=== PATIENT | female | born 1940 | race Caucasian/White ===

== ENCOUNTER 2017-04-25 13:12 | Inpatient (IN) ==
[2017-04-25] MEDS ORDERED: 0.9 % Sodium Chloride 1,000 ML IVC ONE (13:49)
[2017-04-25] MEDS ORDERED: Ondansetron 4 MG/2 ML VIAL IVP ONE (13:49)
[2017-04-25 14:19] LABS: Basophils % 0.2 %; Eosinophils # 0.4 K/mcL (0.0-0.6); Eosinophils % 2.5 %; Hematocrit 36.6 % (35.3-44.9); Hemoglobin 11.2 g/dL (11.5-15.4); Immature Granulocytes % 0.5 % (0-4); Lymphocytes # 2.5 K/mcL (0.6-4.6); Lymphocytes % 14.4 %; Mean Corpuscular HGB Conc 30.6 g/dL (31.6-35.5); Mean Corpuscular Hemoglobin 28.6 pg (28.0-33.3); Mean Corpuscular Volume 93.6 fL (83.0-100.0); Mean Platelet Volume 9.6 fL (9.4-12.4); Monocytes % 11.7 %; Neutrophils # 12.1 K/mcL (1.6-8.9); Platelet Count 267 K/mcL (140-400); Red Blood Count 3.91 M/mcL (3.82-4.97); Red Cell Distribution Width 13.2 % (11.5-14.5); Segmented Neutrophils % 70.7 %
[2017-04-25 14:32] LABS: Bilirubin,Urine Negative (Negative); Blood,Urine Moderate (Negative); Clarity,Urine Turbid (Clear); Color,Urine Yellow (Yellow); Glucose,Urine (UA) Normal (Normal); Ketones,Urine Trace mg/dL (Negative); Leukocyte Esterase,Urine Large (Negative); Nitrite,Urine Negative (Negative); PH,Urine 5.5 pH Units (5.0-8.0); Protein,Urine 100 mg/dL (Neg-Trace); Specific Gravity,Urine 1.017 (1.010-1.025); Urobilinogen,Urine Normal (Normal)
--- NOTE | 2017-04-25 14:33 | Emergency Department Note ---
Disposition Clinical Impression: LOUIE (acute kidney injury), Dehydration Pancreatitis Qualifiers: Chronicity: acute Pancreatitis type: unspecified pancreatitis type Acute pancreatitis complication: unspecified Qualified Code(s): K85.90 - Acute pancreatitis without necrosis or infection, unspecified Disposition: Admitted As Inpatient Condition: Good Time of Disposition: 15:30 General Adult HPI - General Chief complaint: ED Nausea/Vomiting/Diarrhea Stated complaint: vomiting x5 days Time Seen by Provider: 04/25/17 13:47 Source: patient Limitations: no limitations Nursing Notes Reviewed: Yes Vital Signs Reviewed: Yes - History of Present Illness HPI Narrative: Four-day history of nausea vomiting and left flank pain. Patient states this is consistent with previous kidney stones. Subjective fevers. Radiation of the pain to her left abdomen. No trouble urinating. No hematuria. Quality is a sharp pain. Pain Scale: 7 - Related Data Allergies Allergy/AdvReac Type Severity Reaction Status Date / Time No Known Allergies Allergy Verified 04/25/17 13:28 All systems ED: reviewed and negative except as stated. Constitutional: Reports: chills. Denies: fever Cardiovascular: Denies: chest pain, palpitations, syncope Respiratory: Denies: cough, dyspnea, wheezes Gastrointestinal: Reports: nausea, vomiting. Denies: abdominal pain, diarrhea Genitourinary: Denies: urgency, dysuria, frequency, hematuria Past Medical History - Past Medical History Attestation: Yes The following information was validated with the patient. Source: patient Medical history: Reports: diabetes, GERD, hyperlipidemia, hypertension, myocardial infarction Psychiatric history: Reports: no psych history - Social History Smoking Status: Never smoker Smokeless Tobacco Status: No Alcohol use: Reports: none Drug use: Reports: none Physical Exam - General Limitations: no limitations General appearance: alert, in no apparent distress - Head Head exam: atraumatic, normocephalic, normal inspection - Eye Eye exam: Present: normal appearance, PERRL, EOMI. Absent: scleral icterus - ENT ENT exam: normal exam, normal oropharynx, mucous membranes moist - Neck Neck exam: Present: normal inspection, full ROM, trachea midline. Absent: tenderness - Chest Chest inspection: Present: normal inspection, symmetric chest wall rise. Absent : tenderness, rash - Respiratory Respiratory exam: Present: normal lung sounds bilaterally. Absent: respiratory distress - Cardiovascular Cardiovascular exam: Present: regular rate, normal rhythm, normal heart sounds - Abdominal Exam Abdominal exam: Present: soft, Non-Tender, normal bowel sounds. Absent: tenderness, organomegaly - Extremities Exam Extremities exam: Present: normal inspection, full ROM, normal capillary refill. Absent: tenderness, pedal edema - Back Exam Back exam: Present: full ROM, CVA tenderness (L) - Neurological Exam Neurological exam: Present: alert, oriented X3 - Psychiatric Psychiatric exam: Present: normal affect, normal mood - Skin Skin exam: Present: warm, dry, intact, normal color Course Course Narrative: Female patient presents immersed from complaining of 5 day history of nausea and vomiting. She is also complaining of left flank pain that radiates around to her abdomen. She states that she does have a history of kidney stones and this is how they generally present. She denies any fevers but does report subjective chilling. He appears to be resting comfortably in bed and does not appear to be in any distress. Her lung sounds are clear heart sounds are normal on exam she does have left-sided CVA tenderness. I do not appreciate any abdominal tenderness on palpation. There are no peritoneal signs. She shows no signs of edema to her extremities. We will get a CT of patient's abdomen basic lab workup and provide her with pain relief and nausea medication. - Reevaluation(s) Reevaluation #1: Patient has pancreatitis. She has been a difficult stick for nurses however an IV has been placed. Will rehydrate patient and send her urine for reflex culture. She does not report any urinary symptoms at this time. We will await culture before treating this. We will admit patient to the hospital for her new LOUIE as well as pancreatitis. - Consultations Consultation #1: RAPHAEL Hammond accepted Pt in stable condition. Time: 15:30 Vital Signs Temperature 97.8 F 04/25/17 13:28 Pulse Rate 101 04/25/17 13:28 Respiratory Rate 14 04/25/17 13:28 Blood Pressure 108/69 04/25/17 13:28 O2 Sat by Pulse Oximetry 97 04/25/17 13:28 Temperature 98.1 F 04/25/17 20:02 Pulse Rate 100 04/25/17 20:02 Respiratory Rate 18 04/25/17 20:02 Blood Pressure 112/72 04/25/17 20:02 O2 Sat by Pulse Oximetry 95 04/25/17 20:02 Oxygen Delivery Oxygen Delivery Room Air Medical Decision Making - Medical Records Medical records reviewed: Yes I reviewed the patient's medical records. - Lab Data Lab results reviewed: Yes I reviewed the patient's lab results. Result diagrams: 04/25/17 14:08 04/25/17 14:08 Lab Results 04/25/17 04/25/17 04/25/17 Range/Units 14:08 14:08 14:08 WBC 17.0 H (4.3-11.1) K/mcL RBC 3.91 (3.82-4.97) M/mcL Hgb 11.2 L (11.5-15.4) g/dL Hct 36.6 (35.3-44.9) % MCV 93.6 (83.0-100.0) fL MCH 28.6 (28.0-33.3) pg MCHC 30.6 L (31.6-35.5) g/dL RDW 13.2 (11.5-14.5) % Plt Count 267 (140-400) K/mcL MPV 9.6 (9.4-12.4) fL Immature Gran % 0.5 (0-4) % Seg Neutrophils % 70.7 % Lymphocytes % 14.4 % Monocytes % 11.7 % Eosinophils % 2.5 % Basophils % 0.2 % Neutrophils # 12.1 H (1.6-8.9) K/mcL Lymphocytes # 2.5 (0.6-4.6) K/mcL Monocytes # 2.0 H (0.0-1.3) K/mcL Eosinophils # 0.4 (0.0-0.6) K/mcL Basophils # 0.0 (0.0-0.2) K/mcL Sodium 138 (136-145) mEq/L Potassium 4.4 (3.5-4.5) mEq/L Chloride 110 H (98-109) mEq/L Carbon Dioxide 14 L (19-29) mEq/L BUN 70 H (7-20) mg/dL Creatinine 3.11 H (0.57-1.11) mg/dL Est GFR ( Amer) 18 L (> 60) Est GFR (Non-Af Amer) 15 L (> 60) BUN/Creatinine Ratio 23 (6-26) Glucose 145 H (70-99) mg/dL Calculated Osmolality 309 H (280-300) Lactic Acid 1.7 (0.5-2.2) mmol/L Calcium 9.6 (8.6-10.8) mg/dL Lipase 251 H (8-78) Units/L Urine Color (Yellow) Urine Clarity (Clear) Urine pH (5.0-8.0) pH Units Ur Specific [place] (1.010-1.025) Urine Protein (Neg-Trace) mg/dL Urine Glucose (UA) (Normal) mg/dL Urine Ketones (Negative) mg/dL Urine Blood (Negative) Urine Nitrite (Negative) Urine Bilirubin (Negative) Urine Urobilinogen (Normal) mg/dL Ur Leukocyte Esterase (Negative) Urine Microscopic RBC (0-3) per hpf Urine Microscopic WBC (0-3) per hpf Ur Squamous Epith Cells (None-Few) per lpf Urine Bacteria (None-Few) per hpf Hyaline Casts (None-Few) per lpf Ur Culture Indicated? (NO) 04/25/17 Range/Units 14:22 WBC (4.3-11.1) K/mcL RBC (3.82-4.97) M/mcL Hgb (11.5-15.4) g/dL Hct (35.3-44.9) % MCV (83.0-100.0) fL MCH (28.0-33.3) pg MCHC (31.6-35.5) g/dL RDW (11.5-14.5) % Plt Count (140-400) K/mcL MPV (9.4-12.4) fL Immature Gran % (0-4) % Seg Neutrophils % % Lymphocytes % % Monocytes % % Eosinophils % % Basophils % % Neutrophils # (1.6-8.9) K/mcL Lymphocytes # (0.6-4.6) K/mcL Monocytes # (0.0-1.3) K/mcL Eosinophils # (0.0-0.6) K/mcL Basophils # (0.0-0.2) K/mcL Sodium (136-145) mEq/L Potassium (3.5-4.5) mEq/L Chloride (98-109) mEq/L Carbon Dioxide (19-29) mEq/L BUN (7-20) mg/dL Creatinine (0.57-1.11) mg/dL Est GFR ( Amer) (> 60) Est GFR (Non-Af Amer) (> 60) BUN/Creatinine Ratio (6-26) Glucose (70-99) mg/dL Calculated Osmolality (280-300) Lactic Acid (0.5-2.2) mmol/L Calcium (8.6-10.8) mg/dL Lipase (8-78) Units/L Urine Color Yellow (Yellow) Urine Clarity Turbid A (Clear) Urine pH 5.5 (5.0-8.0) pH Units Ur Specific [place] 1.017 (1.010-1.025) Urine Protein 100 H (Neg-Trace) mg/dL Urine Glucose (UA) Normal (Normal) mg/dL Urine Ketones Trace H (Negative) mg/dL Urine Blood Moderate H (Negative) Urine Nitrite Negative (Negative) Urine Bilirubin Negative (Negative) Urine Urobilinogen Normal (Normal) mg/dL Ur Leukocyte Esterase Large H (Negative) Urine Microscopic RBC 3-5 H (0-3) per hpf Urine Microscopic WBC TNTC H (0-3) per hpf Ur Squamous Epith Cells Many H (None-Few) per lpf Urine Bacteria Many H (None-Few) per hpf Hyaline Casts None Seen (None-Few) per lpf Ur Culture Indicated? YES A (NO) - Radiology Data Radiology results reviewed: Yes I reviewed the patient's radiology results. Abdomen/Pelvis CT 04/25/17 13:58 IMPRESSION: Findings likely represent acute interstitial pancreatitis. No fluid collection. Necrosis cannot be assessed without contrast. No evidence of nephro ureteral calculus. Bladder is collapsed and contains a small focus of gas. Correlate for history of catheterization. There is no history of recent catheterization, consider direct visualization for further evaluation. Diverticulosis without evidence of diverticulitis. D/ / Zac Harkins MD / Zac Harkins MD Interpreting Provider: Zac Harkins MD Attestation Statement - Attestation Attestation: I examined this patient and my medical decision-making was reviewed with the Resident Physician. I agree with the documented findings, disposition and treatment plan as described except to the extent set forth below. In summary 76 -year-old female with nausea and abdominal pain and nausea. Fundi have acute unconjugated pancreatitis. Concurrently and white blood cell count elevation as well as acute kidney injury. Plan to admit for IV hydration, pain control, previous cholecystectomy.
[2017-04-25 14:34] LABS: Bacteria,Urine Many per hpf (None-Few); Hyaline Casts,Urine None Seen per lpf (None-Few); Squamous Epithelial Cell,Urine Many per lpf (None-Few); WBC,Urine TNTC per hpf (0-3)
[2017-04-25 14:36] LABS: Calcium 9.6 mg/dL (8.6-10.8); Potassium 4.4 mEq/L (3.5-4.5)
[2017-04-25] MEDS ORDERED: Ondansetron 4 MG/2 ML VIAL IVP PRN (16:25)
[2017-04-25] MEDS ORDERED: Naloxone 0.4 MG/ML INJ IVP PRN (16:25)
[2017-04-25] MEDS ORDERED: *HR* Morphine 2 MG/ML SYRINGE IVP PRN (16:25)
[2017-04-25] MEDS ORDERED: Dextrose Gel 15 GM PO PRN ×2 (16:31)
[2017-04-25] MEDS ORDERED: D5% in Water 1,000 ML IVC PRN (16:31)
[2017-04-25] MEDS ORDERED: *HR* Dextrose 50 % in Water (Syg) 50 ML SYRINGE IVP PRN (16:31)
--- NOTE | 2017-04-25 16:58 | Internal Med History&Physical ---
Date of Encounter: 04/25/17 Time of Encounter: 16:40 Assessment and Plan (1) Acute pancreatitis Current visit: Yes Status: Acute Acute Pancreatitis, unclear etiology - causing abdominal pain, back pain, nausea /vomiting and leukocytosis - with severe LOUIE and UTI Continue IV fluids, empiric IV Flagyl and IV Cipro NPO, IV Zofran, IV pantoprazole, IV Morphine as needed for pain CT abdomen and pelvis acute interstitial pancreatitis with no fluid collection and no evidence of renal calculi, diverticulosis without diverticulitis Lipase - 251 WBC - 17.0 Lactic acid - 1.7 UA - positive for leukocyte esterase and bacteria Cultures - pending BUN/creatinine - 70/3.11 Lipid panel, HbA1c, TSH - pending Cardiac telemetry, labs in a.m., close monitoring Qualifiers: Pancreatitis type: idiopathic Acute pancreatitis complication: unspecified Qualified Code(s): K85.00 - Idiopathic acute pancreatitis without necrosis or infection (2) LOUIE (acute kidney injury) Current visit: Yes Status: Acute Severe acute kidney injury - secondary to dehydration/volume depletion - due to poor PO intake and vomiting Continue IV fluids, labs in a.m. (3) UTI (urinary tract infection) Current visit: Yes Status: Acute UTI, acute cystitis, with LOUIE - present on admission, likely secondary to gram- negative bacteria Continue IV Ciprofloxacin, IV Flagyl UA - positive for leukocyte esterase and bacteria Cultures - pending Qualifiers: Urinary tract infection type: acute cystitis Hematuria presence: without hematuria Qualified Code(s): N30.00 - Acute cystitis without hematuria (4) CAD (coronary artery disease) Current visit: Yes Status: Chronic History of coronary artery disease status post stent - stable, no anginal symptoms Continue Aspirin, Statin, Plavix EKG - pending Troponin - pending Qualifiers: Coronary Disease-Associated Artery/Lesion type: [place] artery [place] vs. transplanted heart: [place] heart Associated angina: without angina Qualified Code(s): I25.10 - Atherosclerotic heart disease of [place] coronary artery without angina pectoris (5) Essential hypertension Current visit: Yes Status: Chronic Essential hypertension, controlled, monitor, restart home meds when taking PO (6) Type 2 diabetes mellitus Current visit: Yes Status: Chronic Diabetes mellitus type 2, insulin-dependent, hyperglycemia Insulin sliding scale low-dose correction, glucose checks Restart Levemir home dose when patient is able to tolerate diabetic diet Qualifiers: Diabetes mellitus complication status: without complication Diabetes mellitus ferry terminal supervisor insulin use: with ferry terminal supervisor use Qualified Code(s): E11.9 - Type 2 diabetes mellitus without complications; Z79.4 - half-way (current) use of insulin (7) DVT prophylaxis Current visit: Yes Status: Acute Continue heparin subcutaneous Internal Medicine - H&P: HPI Chief complaint: Left flank pain, nausea, vomiting Admitted From: Emergency Dept Plans for Post Hospital Care: Home History of present illness: Ms. Gamez is a 76 year old female with past medical history of coronary artery disease status post stent, hypertension, diabetes mellitus, hyperlipidemia and GERD. Patient presents to the ED with complaints of left flank pain, left back pain, nausea and vomiting. Examined [facility] floor. Patient is awake and alert. Not in any distress. Able to provide all history. No family members at bedside. Patient states left flank pain and left back pain started about 4-5 days ago. She also complains of associated nausea and vomiting. She has a poor appetite and states she is unable to keep anything down. Patient states symptoms have gradually worsened, and she finally decided to come to the ED. Patient states the pain is mainly in one particular spot in the left flank and left back. Symptoms are aggravated with food intake. No alleviating factors. She states pain is constant and is sharp. Initial pain was 8 out of 10, but now after IV pain medication patient states it is 3 out of 10. Patient states she has had multiple episodes of vomiting and is unable tolerate any oral diet. Patient also has mild dysuria. She denies diarrhea and denies hematemesis. She denies chest pain or shortness of breath or palpitations. Denies headache or dizziness or cough. Denies hematuria. No other associated symptoms. No other complaints. Initial workup in the ED is significant for acute pancreatitis seen on CT of the abdomen and pelvis. Patient also has leukocytosis, UTI and severe acute kidney injury. Lipase level is elevated at 251. Patient being admitted for acute pancreatitis and UTI and severe acute kidney injury. Patient will be on IV antibiotics, IV fluids, IV pain medication as needed and will be kept nothing by mouth. Patient has been explained about her condition and plan of care in detail. She understood and agreed. No unanswered questions. CODE STATUS full code. Past Med Surg Social Fam HX - Past Medical History Medical history: coronary artery disease, diabetes, GERD, hyperlipidemia, hypertension, myocardial infarction Psychiatric history: no psych history - Past Surgical History Surgical History: angioplasty/stent, cholecystectomy, hip replacement (Right side), hysterectomy, orthopedic, other (Bilateral tibial fracture repair) - Social History Smoking Status: Never smoker Smokeless Tobacco Status: No Alcohol use: none Drug use: none - Family History Mother Living Status: Hx Family Cardiac Disorders: Yes Hx Family Cancer: Yes (skin) Hx Family Endocrine Disorder: Yes (DM) Internal Medicine - H&P: Meds Aspirin [Lo-Dose Aspirin EC] 81 mg PO DAILY 04/25/17 [History] Atorvastatin Calcium [Lipitor] 20 mg PO DAILY 04/25/17 [History] Calcium Carbonate/Vitamin D3 [Calcium 500 + Vit D Caplet] 1 tab PO DAILY [History] Clopidogrel Bisulfate [Plavix] 75 mg PO DAILY 04/25/17 [History] Insulin DETEMIR [Levemir Flextouch] 40 unit SQ BID 04/25/17 [History] Lisinopril [Zestril] 10 mg PO DAILY 04/25/17 [History] Loratadine [Allergy Relief] 10 mg PO DAILY 04/25/17 [History] Metoprolol [Lopressor] 25 mg PO BID 04/25/17 [History] Omeprazole [PriLOSEC] 20 mg PO DAILY 04/25/17 [History] Allergies No Known Allergies Allergy (Verified 04/25/17 13:28) All Systems PM: A 10-system review of systems was performed and is negative for pertinent findings except as documented above in the HPI. - Constitutional Constitutional: fatigue, weakness, no fever(s) - EENT Eyes: no blurry vision - Cardiovascular Cardiovascular ROS IM: no chest pain, no dyspnea, no dyspnea on exertion, no edema, no lightheadedness, no orthopnea, no syncope - Respiratory Respiratory: no cough, no dyspnea, no dyspnea on exertion, no wheezing, no chest congestion - Gastrointestinal Gastrointestinal: abdominal pain (Left flank and left back pain), nausea, vomiting, no bloating, no constipation, no cramping, no diarrhea, no melena - Genitourinary Genitourinary: dysuria - Musculoskeletal Musculoskeletal ROS IM: back pain - Neurological Neurological ROS: no abnormal gait, no confusion, no dizziness, no numbness, no tingling - Constitutional Vitals: Temp Pulse Resp BP Pulse Ox 97.8 F 102 16 144/77 98 04/25/17 16:54 04/25/17 16:54 04/25/17 16:54 04/25/17 16:54 04/25/17 16:54 General appearance: Present: A&O X 3, pleasant, no acute distress, answers questions appropriately - Head Head exam: Present: atraumatic - Eye Eye exam: Present: EOMI - ENT ENT exam: Present: mucous membranes dry - Neck Neck exam general surgery: Present: supple - Respiratory Respiratory exam: Present: CTAB. Absent: rales, rhonchi, stridor, wheezes, tachypnea - Cardiovascular Cardiovascular exam: Present: RRR, +S1, +S2 - GI/Abdominal GI/Abdominal exam: Present: soft, no peritoneal signs. Absent: distended, firm , guarding, rigid, tenderness Additional comments: Patient has mild tenderness in the left lower back - Extremities Exam Extremities exam: Present: radial pulses palpable and symetrical. Absent: calf tenderness, cyanotic, pedal edema, tenderness - Neurological Exam Neurological exam: Present: alert, oriented X3, no focal deficits. Absent: facial droop, speech deficit Internal Med - H&P Results - Labs CBC & Chem 7: 04/25/17 14:08 04/25/17 14:08
[2017-04-25 17:19] LABS: INR 1.2; Prothrombin Time 12.5 Seconds (9.4-12.1)
[2017-04-25 17:23] LABS: Hemoglobin A1C 6.9 %
[2017-04-25] MEDS: Pantoprazole 40 MG VIAL IVP SCH (17:23)
[2017-04-25] MEDS: 0.9 % Sodium Chloride 1,000 ML IVC SCH (17:23)
[2017-04-25] MEDS: *HR* Heparin 5,000 UNIT/ML VIAL SQ SCH (17:23)
[2017-04-25 17:25] LABS: Chol/HDL Ratio 5.3 (0-4.9)
[2017-04-25 17:45] LABS: Thyroid Stimulating Hormone 2.132 mcIU/mL (0.350-4.840)
[2017-04-25] MEDS: Insulin LISPRO 300 UNITS/3 ML VIAL SQ SCH (20:02)
[2017-04-25] MEDS: MetroNIDAZOLE 500 MG/100 ML 500 MG/100 ML BAG IVPB SCH (22:57)
[2017-04-26 02:13] LABS: Basophils % 0.3 %; Eosinophils # 0.4 K/mcL (0.0-0.6); Eosinophils % 2.8 %; Hematocrit 30.3 % (35.3-44.9); Immature Granulocytes % 0.6 % (0-4); Lymphocytes % 15.4 %; Mean Corpuscular HGB Conc 31.7 g/dL (31.6-35.5); Mean Corpuscular Hemoglobin 29.5 pg (28.0-33.3); Mean Corpuscular Volume 93.2 fL (83.0-100.0); Mean Platelet Volume 9.9 fL (9.4-12.4); Monocytes # 1.8 K/mcL (0.0-1.3); Monocytes % 13.7 %; Neutrophils # 8.9 K/mcL (1.6-8.9); Platelet Count 198 K/mcL (140-400); Red Blood Count 3.25 M/mcL (3.82-4.97); Red Cell Distribution Width 13.1 % (11.5-14.5); Segmented Neutrophils % 67.2 %
[2017-04-26 02:15] LABS: Hemoglobin 9.6 g/dL (11.5-15.4)
[2017-04-26 02:26] LABS: Albumin 2.6 g/dL (3.5-5.0); Albumin/Globulin Ratio 0.8 (1.1-2.2); Bilirubin,Total 0.4 mg/dL (0.2-1.2); Calcium 8.5 mg/dL (8.6-10.8); Globulin 3.3 g/dL (2.4-3.5); Potassium 4.1 mEq/L (3.5-4.5); Total Protein 5.9 g/dL (6.0-8.3)
[2017-04-26] MEDS: 0.9 % Sodium Chloride 1,000 ML IVC SCH ×2 (05:31→16:50)
[2017-04-26] MEDS: *HR* Heparin 5,000 UNIT/ML VIAL SQ SCH ×2 (05:36→16:49)
[2017-04-26] MEDS: Insulin LISPRO 300 UNITS/3 ML VIAL SQ SCH ×4 (09:21→20:46)
[2017-04-26] MEDS: MetroNIDAZOLE 500 MG/100 ML 500 MG/100 ML BAG IVPB SCH ×3 (09:49→23:39)
[2017-04-26] MEDS: Pantoprazole 40 MG VIAL IVP SCH (09:50)
[2017-04-26] MEDS: Aspirin Enteric Coated 81 MG Tablet PO SCH (09:51)
[2017-04-26 12:33] LABS: Protein/Creatinine Ratio,Urine 0.37 mg/mg (0-0.20)
--- NOTE | 2017-04-26 14:58 | Internal Med Progress Note ---
Date of Encounter: 04/26/17 Time of Encounter: 10:35 - Assessment and plan (1) Acute pancreatitis Current Visit: Yes Status: Acute Assessment and plan: Acute Pancreatitis, unclear etiology - causing abdominal pain, back pain, nausea /vomiting and leukocytosis - with severe LOUIE and UTI - improving slowly Continue IV fluids, empiric IV Flagyl and IV Cipro Clear liquid diet, IV Zofran, IV pantoprazole, IV Morphine as needed for pain CT abdomen and pelvis acute interstitial pancreatitis with no fluid collection and no evidence of renal calculi, diverticulosis without diverticulitis Lipase - 251 WBC - 13.3 Lactic acid - 1.7 UA - positive for leukocyte esterase and bacteria Cultures - pending BUN/creatinine - 69/2.90 Triglycerides - 251 Cardiac telemetry, labs in a.m., close monitoring Qualifiers: Pancreatitis type: idiopathic Acute pancreatitis complication: unspecified Qualified Code(s): K85.00 - Idiopathic acute pancreatitis without necrosis or infection (2) LOUIE (acute kidney injury) Current Visit: Yes Status: Acute Assessment and plan: Severe acute kidney injury - secondary to dehydration/volume depletion - due to poor PO intake and vomiting - improving slowly Unknown baseline creatinine and GFR Continue IV fluids, labs in a.m. (3) UTI (urinary tract infection) Current Visit: Yes Status: Acute Assessment and plan: UTI, acute cystitis, with LOUIE - present on admission, likely secondary to gram- negative bacteria Continue IV Ciprofloxacin, IV Flagyl UA - positive for leukocyte esterase and bacteria Cultures - pending Qualifiers: Urinary tract infection type: acute cystitis Hematuria presence: without hematuria Qualified Code(s): N30.00 - Acute cystitis without hematuria (4) CAD (coronary artery disease) Current Visit: Yes Status: Chronic Assessment and plan: History of coronary artery disease status post stent - stable, no anginal symptoms Continue Aspirin, Statin, Plavix EKG - sinus rhythm with no acute ST-T changes Troponin - 0.02 Qualifiers: Coronary Disease-Associated Artery/Lesion type: [place] artery [place] vs. transplanted heart: [place] heart Associated angina: without angina Qualified Code(s): I25.10 - Atherosclerotic heart disease of [place] coronary artery without angina pectoris (5) Essential hypertension Current Visit: Yes Status: Chronic Assessment and plan: Essential hypertension, controlled, monitor, continue home meds (6) Type 2 diabetes mellitus Current Visit: Yes Status: Chronic Assessment and plan: Diabetes mellitus type 2, insulin-dependent, normoglycemia Insulin sliding scale low-dose correction, glucose checks Restart Levemir home dose when patient is able to tolerate diabetic diet Hemoglobin A1c - 6.9 Qualifiers: Diabetes mellitus complication status: without complication Diabetes mellitus pool coordinator insulin use: with pool coordinator use Qualified Code(s): E11.9 - Type 2 diabetes mellitus without complications; Z79.4 - care home (current) use of insulin (7) DVT prophylaxis Current Visit: Yes Status: Acute Assessment and plan: Continue heparin subcutaneous - Time Spent With Patient 25 - 35 minutes - Subjective Interval history: Examined this morning. Patient awake and alert. Not in any distress. Denies chest pain or shortness of breath. Denies vomiting. States her back pain and abdominal pain have now improved. Denies diarrhea. No fever. Hemodynamically stable. We will advance to clear liquids today. Acute kidney injury improving slowly and leukocytosis improving. No other acute events or complaints. - Constitutional Vitals: Temp Pulse Resp BP Pulse Ox 98.4 F 66 16 135/98 97 04/26/17 11:08 04/26/17 11:08 04/26/17 11:08 04/26/17 11:08 04/26/17 11:08 General appearance: Present: A&O X 3, pleasant, no acute distress, answers questions appropriately - Head Head exam: Present: atraumatic - Eye Eye exam: Present: EOMI - ENT ENT exam: Present: mucous membranes moist - Neck Neck exam general surgery: Present: supple - Respiratory Respiratory exam: Present: CTAB. Absent: rales, rhonchi, wheezes, tachypnea - Cardiovascular Cardiovascular exam: Present: RRR, +S1, +S2 - GI/Abdominal GI/Abdominal exam: Present: normal bowel sounds, soft. Absent: distended, firm , guarding, rigid, tenderness Additional comments: Left flank and left back tenderness and now improved - Extremities Exam Extremities exam: Present: radial pulses palpable and symetrical. Absent: calf tenderness, cyanotic, pedal edema - Neurological Exam Neurological exam: Present: alert, oriented X3, no focal deficits. Absent: facial droop, speech deficit Internal Medicine: Result - Labs CBC & Chem 7: 04/26/17 01:49 04/26/17 01:49 Labs: Short CBC 04/26/17 Range/Units 01:49 WBC 13.3 H (4.3-11.1) K/mcL Hgb 9.6 L D (11.5-15.4) g/dL Hct 30.3 L (35.3-44.9) % Plt Count 198 (140-400) K/mcL Neutrophils # 8.9 (1.6-8.9) K/mcL BMP 04/26/17 01:49 Sodium 139 Potassium 4.1 Chloride 114 H Carbon Dioxide 14 L BUN 69 H Creatinine 2.90 H Glucose 76 Calcium 8.5 L Cardiac Enzymes 04/25/17 04/25/17 Range/Units 17:01 21:50 Troponin I 0.02 0.02 (0-0.03) ng/mL Liver Function 04/26/17 Range/Units 01:49 Total Bilirubin 0.4 (0.2-1.2) mg/dL AST 16 (5-34) Units/L ALT 11 (0-55) Units/L Alkaline Phosphatase 50 (38-126) Units/L Albumin 2.6 L (3.5-5.0) g/dL - ABG Interpretation ABG results: PT/INR, D-dimer PT 12.5 Seconds (9.4-12.1) H 04/25/17 17:01 Consult Discharge Plan - Plan Referrals: Miguel Deras MD [Primary Care Provider] -
--- NOTE | 2017-04-26 20:56 | Electrocardiograph Report ---
[address] [place] [address] Test Date: 2017-04-26 Pat Name: Dayan Gamez Department: 115 Room: 3A21 Gender: F Ad Setter: BED : 1940 Requested By: Soto Bernal Order Number: [id number] Reading MD: Freddy Hoyos MD Measurements Intervals [place] Rate: 69 P: 52 MS: 165 QRS: -27 QRSD: 98 T: 120 QT: 397 QTc: 417 Interpretive Statements SINUS RHYTHM LOW QRS VOLTAGE IN PRECORDIAL LEADS INFERIOR MYOCARDIAL INFARCTION, PROBABLY OLD ANTEROLATERAL MYOCARDIAL INFARCTION, OF INDETERMINATE AGE Electronically Signed On 04-26-2017 20:54:15 EDT by Freddy Hoyos MD
[2017-04-27 05:39] LABS: Basophils % 0.2 %; Eosinophils # 0.4 K/mcL (0.0-0.6); Eosinophils % 3.5 %; Hematocrit 29.8 % (35.3-44.9); Hemoglobin 9.2 g/dL (11.5-15.4); Immature Granulocytes % 0.8 % (0-4); Lymphocytes # 1.9 K/mcL (0.6-4.6); Lymphocytes % 15.4 %; Mean Corpuscular HGB Conc 30.9 g/dL (31.6-35.5); Mean Corpuscular Hemoglobin 29.4 pg (28.0-33.3); Mean Corpuscular Volume 95.2 fL (83.0-100.0); Monocytes # 1.4 K/mcL (0.0-1.3); Monocytes % 11.6 %; Neutrophils # 8.3 K/mcL (1.6-8.9); Platelet Count 189 K/mcL (140-400); Red Blood Count 3.13 M/mcL (3.82-4.97); Red Cell Distribution Width 13.2 % (11.5-14.5); Segmented Neutrophils % 68.5 %
[2017-04-27 05:55] LABS: Calcium 8.2 mg/dL (8.6-10.8); Potassium 4.2 mEq/L (3.5-4.5)
[2017-04-27] MEDS: *HR* Heparin 5,000 UNIT/ML VIAL SQ SCH (06:06)
[2017-04-27] MEDS: Aspirin Enteric Coated 81 MG Tablet PO SCH (09:38)
[2017-04-27] MEDS: Insulin LISPRO 300 UNITS/3 ML VIAL SQ SCH ×3 (09:40→16:29)
[2017-04-27] MEDS: MetroNIDAZOLE 500 MG/100 ML 500 MG/100 ML BAG IVPB SCH (10:49)
[2017-04-27] MEDS: Pantoprazole 40 MG VIAL IVP SCH (10:50)
[2017-04-27 14:58] VITALS: BP 157/78
--- NOTE | 2017-04-27 16:36 | Discharge Summary ---
Date of Encounter: 04/27/17 Time of Encounter: 16:34 - Discharge Diagnosis (1) Acute pancreatitis Priority: Primary Status: Acute Qualifiers: Pancreatitis type: idiopathic Acute pancreatitis complication: unspecified Qualified Code(s): K85.00 - Idiopathic acute pancreatitis without necrosis or infection (2) LOUIE (acute kidney injury) Priority: Secondary Status: Acute (3) CAD (coronary artery disease) Priority: Secondary Status: Chronic Qualifiers: Coronary Disease-Associated Artery/Lesion type: [place] artery [place] vs. transplanted heart: [place] heart Associated angina: without angina Qualified Code(s): I25.10 - Atherosclerotic heart disease of [place] coronary artery without angina pectoris (4) Essential hypertension Priority: Secondary Status: Chronic (5) Type 2 diabetes mellitus Priority: Secondary Status: Chronic Qualifiers: Diabetes mellitus complication status: without complication Diabetes mellitus detention insulin use: with detention use Qualified Code(s): E11.9 - Type 2 diabetes mellitus without complications; Z79.4 - MCC (current) use of insulin (6) UTI (urinary tract infection) Priority: Secondary Status: Acute Qualifiers: Urinary tract infection type: acute cystitis Hematuria presence: without hematuria Qualified Code(s): N30.00 - Acute cystitis without hematuria (7) DVT prophylaxis Priority: Secondary Status: Acute (8) Chronic kidney disease (CKD), stage III (moderate) Priority: Secondary Status: Suspected - Discharge Medications Prescriptions: Ciprofloxacin [Cipro] 500 mg PO DAILY #10 tablet Home Medications: Aspirin [Lo-Dose Aspirin EC] 81 mg PO DAILY 04/25/17 [History] Atorvastatin Calcium [Lipitor] 20 mg PO DAILY 04/25/17 [History] Calcium Carbonate/Vitamin D3 [Calcium 500 + Vit D Caplet] 1 tab PO DAILY [History] Clopidogrel Bisulfate [Plavix] 75 mg PO DAILY 04/25/17 [History] Insulin DETEMIR [Levemir Flextouch] 40 unit SQ BID 04/25/17 [History] Loratadine [Allergy Relief] 10 mg PO DAILY 04/25/17 [History] Metoprolol [Lopressor] 25 mg PO BID 04/25/17 [History] Omeprazole [PriLOSEC] 20 mg PO DAILY 04/25/17 [History] Ciprofloxacin [Cipro] 500 mg PO DAILY #10 tablet 04/27/17 [Rx] Allergies/Adverse Reactions: Allergies No Known Allergies Allergy (Verified 04/25/17 13:28) Procedures/tests Complete & Pending: Procedures Performed prior 72 hours Category Date Time Status ECG 12 lead ECG [ECG] Stat Y 04/26/17 14:03 Completed EKG [ECG 12 lead ECG] [ECG] AM 0600 Y 04/26/17 06:00 Ordered - Notes to Outpatient Provider Patient's stool for occult blood was also positive. However, her hemoglobin levels have been stable here and she has not had any overt bleeding. She does take Plavix and aspirin for coronary artery disease and prior stents. She will need colonoscopy as outpatient for further evaluation. She also has a follow- up appointment with cardiology later this month when she can discuss about the need to continue taking Plavix. Date of admission: 04/25/17 16:25 Primary care physician: Miguel Deras Discharging clinician: Abilio Simms Anticipated date of discharge: 04/27/17 - Patient Status Disposition: Home, Self-Care Condition: Good Functional capacity at discharge: uses cane/walker Overall status at discharge: patient is progressing back to baseline - Discharge Instructions Instructions: Ciprofloxacin (By mouth), Pancreatitis (DC) Follow Up With: Lalito Allen MD [Partnered Physician] - (LOUIE/ CKD in 1-2 weeks WEB REQUEST - OFFICE WILL CALL WITH APPOINTMENT.) Miguel Deras MD [Primary Care Provider] - 05/07/17 8:15 am Marion Hung MD [Partnered Physician] - (in 2-3 weeks for colonoscopy) - Diet and Activity Activity: as per physical therapy Diet: diabetic diet, low fat, low cholesterol, low salt diet Hospital course: Ms. Gamez is a 76 year old female patient with history of type 2 diabetes mellitus was admitted here with acute pancreatitis. She was treated for this with supportive care and IV hydration. Patient had also been found to have elevated BUN and creatinine. It is unclear if she does have underlying chronic kidney disease although she does not seem to have been diagnosed with that. On presentation her creatinine was 3.11. She was treated with IV hydration and her creatinine has slowly improved to 2.97. Her GFR remains low. Given that she is a diabetic patient she may very well have underlying chronic kidney disease. I will refer her for further evaluation and management to nephrology as outpatient. She does have good urine output. Her pancreatitis appears to be idiopathic inversion. She had findings of acute pancreatitis on CT scan. Patient is status post cholecystectomy. Her triglycerides were 251. Patient does take statin for coronary artery disease. If She does have a relapse of pancreatitis this medication may need to be stopped as it can cause pancreatitis. Patient wishes to go home and does rest of the workup can be done as outpatient, she will be discharged home today. Her urine culture was positive for Escherichia coli. Final sensitivities are pending but she will be discharged on oral ciprofloxacin. Patient's stool for occult blood was also positive. However, her hemoglobin levels have been stable here and she has not had any overt bleeding. She does take Plavix and aspirin for coronary artery disease and prior stents. She will need colonoscopy as outpatient for further evaluation. She also has a follow- up appointment with cardiology later this month when she can discuss about the need to continue taking Plavix. - Time Spent with Patient Total time spent providing and/or coordinating discharge services: Greater than 30 minutes (35 min) - Constitutional Vitals: Temp Pulse Resp BP Pulse Ox 97.5 F L 67 18 157/78 99 04/27/17 14:45 04/27/17 14:45 04/27/17 14:45 04/27/17 14:45 04/27/17 14:45 General appearance: Present: A&O X 3, pleasant, no acute distress, answers questions appropriately - Respiratory Respiratory exam: Present: CTAB. Absent: accessory muscle use, rales, rhonchi, wheezes - Cardiovascular Cardiovascular exam: Present: RRR, +S1, +S2. Absent: diastolic murmur, gallop, rubs, systolic murmur - GI/Abdominal GI/Abdominal exam: Present: normal bowel sounds, soft, no peritoneal signs. Absent: distended, tenderness - Extremities Exam Extremities exam: Present: warm, radial pulses palpable and symmetrical. Absent : calf tenderness, cyanotic, pedal edema - Neurological Exam Neurological exam: Present: alert, oriented X3, no focal deficits, strengths equal and symetr throughout. Absent: facial droop, speech deficit - Skin Skin exam: Present: dry, intact
== END 2017-04-27 19:30 | disposition home or self-care (01) | DRG 439 ==
LOC: EMEROO 13:12 → 3ANU 13:12 → SUATTDRO 16:25 → 3ANU 16:48
PROVIDERS: ADMIT Nurse Practitioner Family; ATTEND Internal Medicine

== ENCOUNTER 2019-11-11 17:13 | Inpatient (IN) ==
[2019-11-11] MEDS ORDERED: *HR* Dextrose 50 % in Water (Syg) 50 ML SYRINGE IVP ONE (17:18)
[2019-11-11] MEDS ORDERED: *HR* Dextrose 50 % in Water (Syg) 50 ML SYRINGE ONE (17:32)
[2019-11-11] MEDS ORDERED: 0.9 % Sodium Chloride 1,000 ML IVC ONE ×2 (17:35→18:40)
[2019-11-11] MEDS ORDERED: Ipratropium/Albuterol Neb 3 ML IH ONE (17:37)
[2019-11-11 18:06] LABS: Basophils % 0.1 %; Hematocrit 37.1 % (35.3-44.9); Hemoglobin 11.7 g/dL (11.5-15.4); Immature Granulocytes % 0.4 % (0-4); Lymphocytes # 1.2 K/mcL (0.6-4.6); Lymphocytes % 8.4 %; Mean Corpuscular HGB Conc 31.5 g/dL (31.6-35.5); Mean Corpuscular Hemoglobin 29.8 pg (28.0-33.3); Mean Corpuscular Volume 94.6 fL (83.0-100.0); Mean Platelet Volume 10.4 fL (9.4-12.4); Monocytes # 1.1 K/mcL (0.0-1.3); Monocytes % 8.2 %; Neutrophils # 11.5 K/mcL (1.6-8.9); Platelet Count 165 K/mcL (140-400); Red Blood Count 3.92 M/mcL (3.82-4.97); Red Cell Distribution Width 12.7 % (11.5-14.5); Segmented Neutrophils % 82.9 %; White Blood Count 13.9 K/mcL (4.3-11.1)
[2019-11-11 18:24] LABS: Albumin 3.5 g/dL (3.5-5.7); Albumin/Globulin Ratio 1.2 (1.1-2.2); Bilirubin,Direct 0.1 mg/dL (0.0-0.2); Bilirubin,Indirect 0.2 mg/dL (0.0-1.0); Bilirubin,Total 0.3 mg/dL (0.3-1.0); Calcium 8.5 mg/dL (8.6-10.3); Globulin 2.9 g/dL (2.4-3.5); Potassium 4.5 mEq/L (3.5-5.1); Total Protein 6.4 g/dL (6.4-8.9)
[2019-11-11 18:41] LABS: Troponin I 0.04 ng/mL (< 0.04)
[2019-11-11 19:17] LABS: Bilirubin,Urine Negative (Negative); Blood,Urine Large (Negative); Clarity,Urine Turbid (Clear); Color,Urine Yellow (Yellow); Glucose,Urine (UA) Normal (Normal); Ketones,Urine Negative (Negative); Leukocyte Esterase,Urine Large (Negative); Nitrite,Urine Negative (Negative); Protein,Urine >=1000 mg/dL (Neg-Trace); Specific Gravity,Urine 1.017 (1.010-1.025); Urobilinogen,Urine Normal (Normal)
[2019-11-11 19:18] LABS: Bacteria,Urine Many per hpf (None-Few); RBC,Urine 15-30 per hpf (0-3); Squamous Epithelial Cell,Urine Many per lpf (None-Few); WBC,Urine TNTC per hpf (0-3)
[2019-11-11 19:49] LABS: Hyaline Casts,Urine None Seen per lpf (None-Few)
[2019-11-11] MEDS ORDERED: Acetaminophen 325 MG TABLET PO PRN (20:48)
[2019-11-11] MEDS ORDERED: Naloxone 0.4 MG/ML INJ IVP PRN (20:48)
[2019-11-11] MEDS ORDERED: Ondansetron 4 MG/2 ML VIAL IVP PRN (20:48)
[2019-11-11] MEDS ORDERED: 0.9 % Sodium Chloride 1,000 ML IVC SCH (21:00)
[2019-11-11 21:15] LABS: Magnesium 2.2 mg/dL (1.6-2.6); Phosphorous 7.6 mg/dL (2.7-4.5)
[2019-11-11] MEDS: D5% in 0.9% NACL 1,000 ML IVC SCH (21:29)
[2019-11-11] MEDS ORDERED: Dextrose Gel 15 GM/37.5 ML TUBE PO PRN ×2 (21:40)
[2019-11-11] MEDS ORDERED: D5% in Water 1,000 ML IVC PRN (21:40)
[2019-11-11] MEDS ORDERED: *HR* Dextrose 50 % in Water (Syg) 50 ML SYRINGE IVP PRN (21:40)
[2019-11-11 22:00] LABS: Estimated Average Glucose 105 mg/dl
[2019-11-11] MEDS ORDERED: Ipratropium/Albuterol Neb 3 ML IH PRN (22:19)
[2019-11-11 23:02] LABS: Adenovirus Not Detected (Not Detect); Bordetella Pertussis Not Detected (Not Detect); Chlamydophila pneumoniae Not Detected (Not Detect); Coronavirus 229E Not Detected (Not Detect); Coronavirus HKU1 Not Detected (Not Detect); Coronavirus NL63 Not Detected (Not Detect); Coronavirus OC43 Not Detected (Not Detect); Human Metapneumovirus Not Detected (Not Detect); Human Rhinovirus/Enterovirus Not Detected (Not Detect); Influenza B Not Detected (Not Detect); Mycoplasma pneumoniae Not Detected (Not Detect); Parainfluenza Virus 1 Not Detected (Not Detect); Parainfluenza Virus 2 Not Detected (Not Detect); Parainfluenza Virus 3 Not Detected (Not Detect); Parainfluenza Virus 4 Not Detected (Not Detect); Respiratory Syncytial Virus Not Detected (Not Detect)
[2019-11-11 23:03] LABS: Influenza A Subtype 2009 H1 DETECTED (Not Detect)
[2019-11-11] MEDS: Insulin LISPRO 300 UNITS/3 ML VIAL SQ SCH (23:43)
[2019-11-12 01:40] LABS: Hematocrit 29.5 % (35.3-44.9); Mean Corpuscular HGB Conc 32.5 g/dL (31.6-35.5); Mean Corpuscular Volume 95.2 fL (83.0-100.0); Mean Platelet Volume 10.6 fL (9.4-12.4); Platelet Count 115 K/mcL (140-400); Red Cell Distribution Width 12.8 % (11.5-14.5); White Blood Count 10.2 K/mcL (4.3-11.1)
[2019-11-12 01:42] LABS: Hemoglobin 9.6 g/dL (11.5-15.4)
[2019-11-12 02:01] LABS: Calcium 7.7 mg/dL (8.6-10.3); Potassium 3.9 mEq/L (3.5-5.1)
[2019-11-12] MEDS: *HR* Heparin 5,000 UNIT/ML VIAL SQ SCH ×2 (05:05→19:22)
[2019-11-12] MEDS: Insulin LISPRO 300 UNITS/3 ML VIAL SQ SCH ×3 (05:06→17:19)
[2019-11-12] MEDS: D5% in 0.9% NACL 1,000 ML IVC SCH ×2 (06:27→19:49)
[2019-11-12] MEDS: cefTRIAXone 1,000 MG in Water for inj. (sterile) 10 ML IVP SCH (09:50)
[2019-11-12] MEDS ORDERED: Insulin LISPRO 300 UNITS/3 ML VIAL SQ SCH (21:00)
[2019-11-12 23:00] LABS: Adenovirus F 40/41 PCR Not detected (Not detect); Astrovirus PCR Not detected (Not detect); C.difficile Toxin A/B Gene PCR Not detected (Not detect); Campylobacter by PCR Not detected (Not detect); Cryptosporidium by PCR Not detected (Not detect); Cyclospora cayetanensis PCR Not detected (Not detect); E. coli O157 by PCR Not detected (Not detect); Entamoeba histolytica PCR Not detected (Not detect); Enteroaggregative E.coli(EAEC) Not detected (Not detect); Enteropathogenic E.coli(EPEC) Not detected (Not detect); Enterotoxigenic E.coli (ETEC) Not detected (Not detect); Giardia lamblia PCR Not detected (Not detect); Norovirus GI/GII PCR Not detected (Not detect); Plesiomonas shigelloides PCR Not detected (Not detect); Rotavirus A PCR Not detected (Not detect); Salmonella PCR Not detected (Not detect); Sapovirus PCR Not detected (Not detect); Shig/EnteroinvasiveE coli EIEC Not detected (Not detect); Shigalike tox-prod E coli STEC Not detected (Not detect); Vibrio PCR Not detected (Not detect); Vibrio cholerae PCR Not detected (Not detect); Yersinia enterocolitica PCR Not detected (Not detect)
[2019-11-13] MEDS: Insulin LISPRO 300 UNITS/3 ML VIAL SQ SCH ×4 (00:08→17:49)
[2019-11-13 01:43] LABS: Hematocrit 30.7 % (35.3-44.9); Hemoglobin 9.3 g/dL (11.5-15.4); Mean Corpuscular HGB Conc 30.3 g/dL (31.6-35.5); Mean Corpuscular Hemoglobin 29.6 pg (28.0-33.3); Mean Corpuscular Volume 97.8 fL (83.0-100.0); Mean Platelet Volume 10.8 fL (9.4-12.4); Platelet Count 128 K/mcL (140-400); Red Blood Count 3.14 M/mcL (3.82-4.97); Red Cell Distribution Width 13.2 % (11.5-14.5); White Blood Count 9.5 K/mcL (4.3-11.1)
[2019-11-13 02:01] LABS: Calcium 7.8 mg/dL (8.6-10.3); Potassium 3.8 mEq/L (3.5-5.1)
[2019-11-13] MEDS: *HR* Heparin 5,000 UNIT/ML VIAL SQ SCH ×2 (05:15→16:30)
[2019-11-13] MEDS: cefTRIAXone 1,000 MG in Water for inj. (sterile) 10 ML IVP SCH (10:08)
[2019-11-13] MEDS: D5% in 0.9% NACL 1,000 ML IVC SCH (13:30)
[2019-11-14] MEDS: Insulin LISPRO 300 UNITS/3 ML VIAL SQ SCH ×4 (04:17→20:55)
[2019-11-14] MEDS: D5% in 0.9% NACL 1,000 ML IVC SCH ×2 (04:22→20:54)
[2019-11-14] MEDS: *HR* Heparin 5,000 UNIT/ML VIAL SQ SCH ×2 (05:19→16:18)
[2019-11-14 05:36] LABS: Hematocrit 30.9 % (35.3-44.9); Hemoglobin 9.6 g/dL (11.5-15.4); Mean Corpuscular HGB Conc 31.1 g/dL (31.6-35.5); Mean Corpuscular Hemoglobin 30.2 pg (28.0-33.3); Mean Corpuscular Volume 97.2 fL (83.0-100.0); Mean Platelet Volume 10.9 fL (9.4-12.4); Platelet Count 142 K/mcL (140-400); Red Blood Count 3.18 M/mcL (3.82-4.97); Red Cell Distribution Width 13.1 % (11.5-14.5); White Blood Count 12.4 K/mcL (4.3-11.1)
[2019-11-14 05:56] LABS: Calcium 7.8 mg/dL (8.6-10.3); Potassium 3.7 mEq/L (3.5-5.1)
[2019-11-14] MEDS: lisinopriL 10 MG TABLET PO SCH (10:06)
[2019-11-14] MEDS: Aspirin Enteric Coated 81 MG Tablet PO SCH (10:06)
[2019-11-14] MEDS: Cholecalciferol (D-3) 1,000 UNIT (25MCG) TABLET PO SCH (10:06)
[2019-11-14] MEDS: cefTRIAXone 2,000 MG in Water for inj. (sterile) 20 ML IVP SCH (10:07)
[2019-11-14] MEDS: amLODIPine 5 MG TABLET PO SCH (10:09)
[2019-11-14] MEDS: Ipratropium/Albuterol Neb 3 ML IH SCH ×3 (10:50→21:35)
[2019-11-15] MEDS: Insulin LISPRO 300 UNITS/3 ML VIAL SQ SCH ×4 (00:50→17:30)
[2019-11-15] MEDS: Ipratropium/Albuterol Neb 3 ML IH SCH ×4 (04:14→21:55)
[2019-11-15] MEDS: *HR* Heparin 5,000 UNIT/ML VIAL SQ SCH ×2 (05:48→17:31)
[2019-11-15 06:23] LABS: Calcium 7.2 mg/dL (8.6-10.3)
[2019-11-15 09:17] LABS: Hematocrit 28.2 % (35.3-44.9); Hemoglobin 8.7 g/dL (11.5-15.4); Mean Corpuscular HGB Conc 30.9 g/dL (31.6-35.5); Mean Corpuscular Hemoglobin 30.1 pg (28.0-33.3); Mean Corpuscular Volume 97.6 fL (83.0-100.0); Mean Platelet Volume 11.6 fL (9.4-12.4); Platelet Count 129 K/mcL (140-400); Red Blood Count 2.89 M/mcL (3.82-4.97); Red Cell Distribution Width 12.9 % (11.5-14.5)
[2019-11-15 09:24] LABS: White Blood Count 12.3 K/mcL (4.3-11.1)
[2019-11-15] MEDS: Cholecalciferol (D-3) 1,000 UNIT (25MCG) TABLET PO SCH (09:42)
[2019-11-15] MEDS: lisinopriL 10 MG TABLET PO SCH (09:42)
[2019-11-15] MEDS: Aspirin Enteric Coated 81 MG Tablet PO SCH (09:42)
[2019-11-15] MEDS: amLODIPine 5 MG TABLET PO SCH (09:42)
[2019-11-15] MEDS: cefTRIAXone 2,000 MG in Water for inj. (sterile) 20 ML IVP SCH (09:48)
[2019-11-15] MEDS: D5% in 0.9% NACL 1,000 ML IVC SCH (09:57)
[2019-11-15] MEDS ORDERED: predniSONE 20 MG TABLET PO ONE (11:15)
[2019-11-16] MEDS: Insulin LISPRO 300 UNITS/3 ML VIAL SQ SCH ×4 (00:27→17:52)
[2019-11-16] MEDS: Ipratropium/Albuterol Neb 3 ML IH SCH ×4 (04:18→21:58)
[2019-11-16] MEDS: *HR* Heparin 5,000 UNIT/ML VIAL SQ SCH ×2 (05:25→16:05)
[2019-11-16 07:04] LABS: Calcium 7.7 mg/dL (8.6-10.3); Potassium 4.6 mEq/L (3.5-5.1)
[2019-11-16] MEDS: lisinopriL 10 MG TABLET PO SCH (08:18)
[2019-11-16] MEDS: Cholecalciferol (D-3) 1,000 UNIT (25MCG) TABLET PO SCH (08:18)
[2019-11-16] MEDS: amLODIPine 5 MG TABLET PO SCH (08:18)
[2019-11-16] MEDS: Aspirin Enteric Coated 81 MG Tablet PO SCH (08:19)
[2019-11-16 09:40] LABS: Hematocrit 26.2 % (35.3-44.9); Hemoglobin 8.4 g/dL (11.5-15.4); Mean Corpuscular HGB Conc 32.1 g/dL (31.6-35.5); Mean Corpuscular Hemoglobin 30.1 pg (28.0-33.3); Mean Corpuscular Volume 93.9 fL (83.0-100.0); Mean Platelet Volume 10.7 fL (9.4-12.4); Platelet Count 167 K/mcL (140-400); Red Blood Count 2.79 M/mcL (3.82-4.97); Red Cell Distribution Width 12.8 % (11.5-14.5); White Blood Count 13.1 K/mcL (4.3-11.1)
[2019-11-16] MEDS: D5% in 0.9% NACL 1,000 ML IVC SCH ×2 (11:31→23:15)
[2019-11-17] MEDS: Insulin LISPRO 300 UNITS/3 ML VIAL SQ SCH ×3 (00:37→12:15)
[2019-11-17 01:17] LABS: Hematocrit 25.3 % (35.3-44.9); Mean Corpuscular HGB Conc 31.6 g/dL (31.6-35.5); Mean Corpuscular Hemoglobin 30.3 pg (28.0-33.3); Mean Corpuscular Volume 95.8 fL (83.0-100.0); Platelet Count 191 K/mcL (140-400); Red Blood Count 2.64 M/mcL (3.82-4.97); Red Cell Distribution Width 12.7 % (11.5-14.5); White Blood Count 13.6 K/mcL (4.3-11.1)
[2019-11-17 01:37] LABS: Calcium 7.6 mg/dL (8.6-10.3); Potassium 3.6 mEq/L (3.5-5.1)
[2019-11-17 01:45] LABS: % Iron Saturation 30 % (15-50); Iron 42 mcg/dL (50-170); Transferrin 99 mg/dL (203-362)
[2019-11-17 01:55] LABS: Ferritin 219 ng/mL (10-120)
[2019-11-17] MEDS: Ipratropium/Albuterol Neb 3 ML IH SCH ×3 (03:33→18:38)
[2019-11-17] MEDS: *HR* Heparin 5,000 UNIT/ML VIAL SQ SCH (05:57)
[2019-11-17] MEDS: amLODIPine 5 MG TABLET PO SCH (08:00)
[2019-11-17] MEDS: Cholecalciferol (D-3) 1,000 UNIT (25MCG) TABLET PO SCH (08:00)
[2019-11-17] MEDS: lisinopriL 10 MG TABLET PO SCH (08:00)
[2019-11-17] MEDS: Aspirin Enteric Coated 81 MG Tablet PO SCH (08:00)
[2019-11-17] MEDS: D5% in 0.9% NACL 1,000 ML IVC SCH (14:45)
[2019-11-17 15:37] VITALS: BP 164/76
== END 2019-11-17 16:58 | disposition home or self-care (01) ==
LOC: 3BNU 17:13 → EMEROOARM 17:13 → 3BNU 20:55 → SUATTDRO 11-13 11:07
PROVIDERS: ADMIT Family Medicine; ATTEND Internal Medicine

== ENCOUNTER 2019-11-20 12:57 | Inpatient (IN) ==
[2019-11-20 14:01] LABS: Basophils % 0.2 %; Eosinophils # 0.1 K/mcL (0.0-0.6); Eosinophils % 0.5 %; Hematocrit 33.3 % (35.3-44.9); Immature Granulocytes % 0.9 % (0-4); Lymphocytes # 1.2 K/mcL (0.6-4.6); Lymphocytes % 8.1 %; Mean Corpuscular HGB Conc 32.1 g/dL (31.6-35.5); Mean Corpuscular Hemoglobin 30.7 pg (28.0-33.3); Mean Corpuscular Volume 95.7 fL (83.0-100.0); Mean Platelet Volume 9.8 fL (9.4-12.4); Monocytes # 1.1 K/mcL (0.0-1.3); Monocytes % 7.5 %; Neutrophils # 11.8 K/mcL (1.6-8.9); Platelet Count 317 K/mcL (140-400); Red Blood Count 3.48 M/mcL (3.82-4.97); Red Cell Distribution Width 12.8 % (11.5-14.5); Segmented Neutrophils % 82.8 %; White Blood Count 14.3 K/mcL (4.3-11.1)
[2019-11-20 14:02] LABS: Hemoglobin 10.7 g/dL (11.5-15.4)
[2019-11-20 14:25] LABS: Alanine Aminotransferase 13 Units/L (7-52); Albumin 3.2 g/dL (3.5-5.7); Alkaline Phosphatase 48 Units/L (34-104); Aspartate Amino Transferase 16 Units/L (13-39); BUN/Creatinine Ratio 14 (6-26); Bilirubin,Total 0.2 mg/dL (0.3-1.0); Blood Urea Nitrogen 43 mg/dL (8-23); Calcium 8.6 mg/dL (8.6-10.3); Carbon Dioxide 19 mEq/L (23-29); Chloride 113 mEq/L (98-107); Globulin 3.2 g/dL (2.4-3.5); Glucose 44 mg/dL (70-105); Osmolality,Calculated 300 (280-300); Potassium 3.7 mEq/L (3.5-5.1); Sodium 141 mEq/L (136-145); Total Protein 6.4 g/dL (6.4-8.9); Troponin I < 0.03 ng/mL (< 0.04); eGFR For African Americans 17 (> 60); eGFR For Non-African Americans 14 (> 60)
[2019-11-20] MEDS ORDERED: *HR* Dextrose 50 % in Water (Syg) 50 ML SYRINGE IVP ONE (14:37)
[2019-11-20 14:59] LABS: Bilirubin,Urine Negative (Negative); Blood,Urine Small (Negative); Clarity,Urine Clear (Clear); Color,Urine Yellow (Yellow); Glucose,Urine (UA) Normal (Normal); Ketones,Urine Negative (Negative); Leukocyte Esterase,Urine Negative (Negative); Nitrite,Urine Negative (Negative); Protein,Urine >=300 mg/dL (Neg-Trace); Urobilinogen,Urine Normal (Normal)
[2019-11-20] MEDS ORDERED: *HR* Dextrose 50 % in Water (Syg) 50 ML SYRINGE ONE (15:02)
[2019-11-20 15:03] LABS: Bacteria,Urine None Seen per hpf (None-Few); Hyaline Casts,Urine None Seen per lpf (None-Few); RBC,Urine 15-30 per hpf (0-3); Squamous Epithelial Cell,Urine Many per lpf (None-Few)
[2019-11-20] MEDS ORDERED: cefTRIAXone 1,000 MG in 0.9 % Sodium Chloride Mini Bag 100 ML IVPB ONE (15:14)
[2019-11-20] MEDS ORDERED: Naloxone 0.4 MG/ML INJ IVP PRN (17:39)
[2019-11-21] MEDS ORDERED: Dextrose Gel 15 GM/37.5 ML TUBE PO PRN ×2 (00:01)
[2019-11-21] MEDS ORDERED: D5% in Water 1,000 ML IVC PRN (00:01)
[2019-11-21] MEDS: *HR* Dextrose 50 % in Water (Syg) 50 ML SYRINGE IVP PRN ×5 (00:07→04:58)
[2019-11-21] MEDS ORDERED: *HR* Dextrose 50 % in Water (Syg) 50 ML SYRINGE IVP ONE (00:13)
[2019-11-21] MEDS ORDERED: D10% in Water 500 ML IVC SCH ×3 (01:15→05:03)
[2019-11-21 05:44] LABS: Hematocrit 27.3 % (35.3-44.9); Mean Corpuscular HGB Conc 31.1 g/dL (31.6-35.5); Mean Corpuscular Hemoglobin 29.8 pg (28.0-33.3); Mean Corpuscular Volume 95.8 fL (83.0-100.0); Mean Platelet Volume 9.8 fL (9.4-12.4); Platelet Count 247 K/mcL (140-400); Red Blood Count 2.85 M/mcL (3.82-4.97); Red Cell Distribution Width 12.9 % (11.5-14.5); White Blood Count 12.3 K/mcL (4.3-11.1)
[2019-11-21 05:49] LABS: Hemoglobin 8.5 g/dL (11.5-15.4)
[2019-11-21 06:05] LABS: Calcium 7.7 mg/dL (8.6-10.3)
[2019-11-21] MEDS: D10% in Water 500 ML IVC SCH ×3 (06:10→12:12)
[2019-11-21] MEDS: Cholecalciferol (D-3) 1,000 UNIT (25MCG) TABLET PO SCH (08:13)
[2019-11-21] MEDS: Aspirin Enteric Coated 81 MG Tablet PO SCH (08:13)
[2019-11-21] MEDS: lisinopriL 10 MG TABLET PO SCH (08:13)
[2019-11-21] MEDS ORDERED: *HR* Dextrose 50 % in Water (Syg) 50 ML SYRINGE IVC ONE (16:04)
[2019-11-22] MEDS: D10% in Water 500 ML IVC SCH ×3 (00:49→05:18)
[2019-11-22 07:29] LABS: Basophils % 0.1 %; Eosinophils # 0.2 K/mcL (0.0-0.6); Eosinophils % 1.5 %; Hematocrit 26.2 % (35.3-44.9); Hemoglobin 8.2 g/dL (11.5-15.4); Immature Granulocytes % 0.3 % (0-4); Lymphocytes # 2.2 K/mcL (0.6-4.6); Lymphocytes % 18.8 %; Mean Corpuscular HGB Conc 31.3 g/dL (31.6-35.5); Mean Corpuscular Hemoglobin 30.1 pg (28.0-33.3); Mean Corpuscular Volume 96.3 fL (83.0-100.0); Mean Platelet Volume 9.7 fL (9.4-12.4); Monocytes # 1.6 K/mcL (0.0-1.3); Monocytes % 14.1 %; Neutrophils # 7.6 K/mcL (1.6-8.9); Platelet Count 236 K/mcL (140-400); Red Blood Count 2.72 M/mcL (3.82-4.97); Red Cell Distribution Width 12.9 % (11.5-14.5); Segmented Neutrophils % 65.2 %; White Blood Count 11.6 K/mcL (4.3-11.1)
[2019-11-22 07:37] LABS: Calcium 7.9 mg/dL (8.6-10.3); Potassium 4.4 mEq/L (3.5-5.1)
[2019-11-22] MEDS: lisinopriL 10 MG TABLET PO SCH (09:36)
[2019-11-22] MEDS: Cholecalciferol (D-3) 1,000 UNIT (25MCG) TABLET PO SCH (09:37)
[2019-11-22] MEDS: Aspirin Enteric Coated 81 MG Tablet PO SCH (09:37)
[2019-11-22 12:01] VITALS: BP 180/71
== END 2019-11-22 13:40 | DRG 638 ==
LOC: EMEROOARM 12:57 → 3BNU 12:57 → SUATTDRO 16:03 → 3BNU 16:55 → SUATTDRO 11-21 20:40
PROVIDERS: ADMIT Internal Medicine; ATTEND Internal Medicine

== ENCOUNTER 2020-07-29 19:25 | Inpatient (IN) ==
[2020-07-29] MEDS ORDERED: Isovue-370 500 ML BOTTLE IVP ONE (19:41)
[2020-07-29] MEDS ORDERED: cefTRIAXone 1,000 MG in 0.9 % Sodium Chloride Mini Bag 100 ML IVPB ONE (19:56)
[2020-07-29] MEDS ORDERED: MetroNIDAZOLE 500 MG/100 ML 500 MG/100 ML BAG IVPB ONE (19:57)
[2020-07-29] MEDS ORDERED: Vancomycin 1,750 MG/517.5 ML IV.SOLN IVPB ONE (19:57)
[2020-07-29] MEDS ORDERED: 0.9 % Sodium Chloride 1,000 ML IVC ONE ×2 (19:58→21:50)
[2020-07-29] MEDS ORDERED: Pantoprazole 40 MG VIAL IVP ONE (20:15)
[2020-07-29] MEDS ORDERED: Octreotide 50 MCG/ML INJ IVP ONE (20:15)
[2020-07-29] MEDS: Pantoprazole 40 MG VIAL IVP ONE ×2 (20:23→20:24)
[2020-07-29] MEDS ORDERED: 0.9 % Sodium Chloride 250 ML ONE (20:34)
[2020-07-29 20:56] LABS: Basophils # 0.1 K/mcL (0.0-0.2); Basophils % 0.2 %; Eosinophils % 0.1 %; Hematocrit 39.2 % (35.3-44.9); Immature Granulocytes % 1.3 % (0-4); Lymphocytes # 2.1 K/mcL (0.6-4.6); Lymphocytes % 6.8 %; Mean Corpuscular HGB Conc 30.6 g/dL (31.6-35.5); Mean Corpuscular Hemoglobin 31.8 pg (28.0-33.3); Neutrophils # 24.2 K/mcL (1.6-8.9); Platelet Count 277 K/mcL (140-400); Red Blood Count 3.77 M/mcL (3.82-4.97); Red Cell Distribution Width 12.5 % (11.5-14.5); Segmented Neutrophils % 78.6 %
[2020-07-29 21:00] LABS: INR 1.1; Prothrombin Time 12.9 Seconds (9.4-12.1); White Blood Count 30.8 K/mcL (4.3-11.1)
[2020-07-29 21:02] LABS: Activated Partial Thrombo Time 29.2 Seconds (26.0-36.0)
[2020-07-29] MEDS: Octreotide 400 MCG in 0.9 % Sodium Chloride 100 ML IVC SCH (21:05)
[2020-07-29 21:15] LABS: Alanine Aminotransferase 10 Units/L (7-52); Albumin 3.7 g/dL (3.5-5.7); Albumin/Globulin Ratio 1.3 (1.1-2.2); Alkaline Phosphatase 42 Units/L (34-104); Aspartate Amino Transferase 24 Units/L (13-39); BUN/Creatinine Ratio 13 (6-26); Bilirubin,Direct 0.1 mg/dL (0.0-0.2); Bilirubin,Indirect 0.2 mg/dL (0.0-1.0); Bilirubin,Total 0.3 mg/dL (0.3-1.0); Blood Urea Nitrogen 73 mg/dL (8-23); Carbon Dioxide 12 mEq/L (23-29); Chloride 107 mEq/L (98-107); Globulin 2.8 g/dL (2.4-3.5); Glucose 252 mg/dL (70-105); Lipase 67 Units/L (11-82); Osmolality,Calculated 314 (280-300); Potassium 5.1 mEq/L (3.5-5.1); Sodium 137 mEq/L (136-145); Total Protein 6.5 g/dL (6.4-8.9); Troponin I < 0.03 ng/mL (< 0.04); eGFR For African Americans 9 (> 60); eGFR For Non-African Americans 8 (> 60)
[2020-07-29] MEDS ORDERED: Ondansetron 4 MG/2 ML VIAL IVP ONE (21:27)
[2020-07-29] MEDS ORDERED: 0.9 % Sodium Chloride 500 ML IVC ONE (21:51)
[2020-07-29] MEDS ORDERED: Metoclopramide 10 MG/2 ML VIAL IVP ONE (22:55)
[2020-07-30] MEDS ORDERED: Naloxone 0.4 MG/ML INJ IVP PRN (01:24)
[2020-07-30] MEDS: Pantoprazole 40 MG in 0.9 % Sodium Chloride Mini Bag 100 ML IVC SCH ×2 (01:25→05:41)
[2020-07-30] MEDS ORDERED: Ondansetron 4 MG/2 ML VIAL ONE (02:00)
[2020-07-30] MEDS ORDERED: Ondansetron 4 MG/2 ML VIAL IVP PRN (02:01)
[2020-07-30 04:29] LABS: Albumin 3.6 g/dL (3.5-5.7); Albumin/Globulin Ratio 1.4 (1.1-2.2); Bilirubin,Total 0.4 mg/dL (0.3-1.0); Calcium 8.3 mg/dL (8.6-10.3); Globulin 2.5 g/dL (2.4-3.5); Magnesium 1.7 mg/dL (1.6-2.6); Phosphorous 5.2 mg/dL (2.7-4.5); Potassium 5.2 mEq/L (3.5-5.1); Total Protein 6.1 g/dL (6.4-8.9)
[2020-07-30 04:33] LABS: Basophils # 0.1 K/mcL (0.0-0.2); Basophils % 0.2 %; Hematocrit 42.1 % (35.3-44.9); Hemoglobin 12.8 g/dL (11.5-15.4); Immature Granulocytes % 0.8 % (0-4); Mean Corpuscular HGB Conc 30.4 g/dL (31.6-35.5); Mean Corpuscular Hemoglobin 30.8 pg (28.0-33.3); Mean Corpuscular Volume 101.2 fL (83.0-100.0); Monocytes # 2.3 K/mcL (0.0-1.3); Monocytes % 9.4 %; Neutrophils # 21.2 K/mcL (1.6-8.9); Platelet Count 188 K/mcL (140-400); Red Blood Count 4.16 M/mcL (3.82-4.97); Red Cell Distribution Width 12.8 % (11.5-14.5); Segmented Neutrophils % 85.6 %; White Blood Count 24.8 K/mcL (4.3-11.1)
[2020-07-30] MEDS ORDERED: 0.9 % Sodium Chloride 1,000 ML IVC SCH (05:00)
[2020-07-30 05:11] LABS: Bacteria,Urine Moderate per hpf (None-Few); Bilirubin,Urine Small (Negative); Blood,Urine Large (Negative); Clarity,Urine Ex.Turbid (Clear); Color,Urine Dark-Orange (Yellow); Glucose,Urine (UA) Normal (Normal); Ketones,Urine Negative (Negative); Leukocyte Esterase,Urine Large (Negative); Nitrite,Urine Negative (Negative); PH,Urine 5.5 pH Units (5.0-8.0); Protein,Urine >=300 mg/dL (Neg-Trace); RBC,Urine TNTC per hpf (0-3); Specific Gravity,Urine 1.028 (1.010-1.025); Squamous Epithelial Cell,Urine Few per hpf (None-Few); WBC,Urine TNTC per hpf (0-3)
[2020-07-30] MEDS ORDERED: *HR* Dextrose 50 % in Water (Vial) 50 ML VIAL IVP PRN (05:49)
[2020-07-30] MEDS ORDERED: D5% in Water 1,000 ML IVC PRN (05:49)
[2020-07-30] MEDS ORDERED: Dextrose Gel 15 GM/37.5 ML TUBE PO PRN ×2 (05:49)
[2020-07-30] MEDS ORDERED: Piperacillin/Tazobactam 3.375 GM in 0.9 % Sodium Chloride Mini Bag 100 ML IVPB SCH (06:00)
[2020-07-30] MEDS: Octreotide 400 MCG in 0.9 % Sodium Chloride 100 ML IVC SCH (06:11)
[2020-07-30] MEDS: Insulin LISPRO 300 UNITS/3 ML VIAL SQ SCH ×4 (06:13→23:39)
[2020-07-30] MEDS: Sodium Bicarbonate 150 MEQ in D5% in Water 1,000 ML IVC SCH ×3 (07:54→23:04)
[2020-07-30] MEDS ORDERED: Prochlorperazine 10 MG/2 ML VIAL IVP PRN (10:01)
[2020-07-30 10:23] LABS: Albumin 2.5 g/dL (3.5-5.7); Albumin/Globulin Ratio 1.3 (1.1-2.2); Bilirubin,Direct 0.1 mg/dL (0.0-0.2); Bilirubin,Indirect 0.2 mg/dL (0.0-1.0); Bilirubin,Total 0.3 mg/dL (0.3-1.0); Globulin 1.9 g/dL (2.4-3.5); Total Protein 4.4 g/dL (6.4-8.9)
[2020-07-30 10:28] LABS: Albumin 2.3 g/dL (3.5-5.7); Albumin/Globulin Ratio 1.3 (1.1-2.2); Bilirubin,Total 0.3 mg/dL (0.3-1.0); Calcium 6.2 mg/dL (8.6-10.3); Globulin 1.8 g/dL (2.4-3.5); Potassium 4.1 mEq/L (3.5-5.1); Total Protein 4.1 g/dL (6.4-8.9)
[2020-07-30 11:26] LABS: Magnesium 1.4 mg/dL (1.6-2.6)
[2020-07-30 11:27] LABS: Hematocrit 34.9 % (35.3-44.9); Hemoglobin 10.7 g/dL (11.5-15.4); Mean Corpuscular HGB Conc 30.7 g/dL (31.6-35.5); Mean Corpuscular Hemoglobin 30.8 pg (28.0-33.3); Mean Corpuscular Volume 100.6 fL (83.0-100.0); Mean Platelet Volume 10.2 fL (9.4-12.4); Platelet Count 155 K/mcL (140-400); Red Blood Count 3.47 M/mcL (3.82-4.97); White Blood Count 19.7 K/mcL (4.3-11.1)
[2020-07-30] MEDS: MetroNIDAZOLE 500 MG/100 ML 500 MG/100 ML BAG IVPB SCH ×2 (12:36→21:18)
[2020-07-30] MEDS ORDERED: Vancomycin 1 EACH in 0.9 % Sodium Chloride 250 ML IVPB PRN (13:00)
[2020-07-30] MEDS: Vancomycin Oral Soln 125 MG/2.5 ML UDC PO SCH ×3 (13:20→21:18)
[2020-07-30 13:43] LABS: Lymphocytes # 0.8 K/mcL (0.6-4.6); Monocytes # 1.4 K/mcL (0.0-1.3); Neutrophils # 16.8 K/mcL (1.6-8.9)
[2020-07-30 13:46] LABS: Platelet Estimate Normal (Normal)
[2020-07-30 15:11] LABS: Hematocrit 33.5 % (35.3-44.9); Hemoglobin 10.6 g/dL (11.5-15.4); Mean Corpuscular HGB Conc 31.6 g/dL (31.6-35.5); Mean Corpuscular Volume 101.2 fL (83.0-100.0); Mean Platelet Volume 10.1 fL (9.4-12.4); Platelet Count 136 K/mcL (140-400); Red Blood Count 3.31 M/mcL (3.82-4.97); White Blood Count 16.9 K/mcL (4.3-11.1)
[2020-07-30 15:20] LABS: INR 1.2; Prothrombin Time 13.7 Seconds (9.4-12.1)
[2020-07-30 15:40] LABS: Albumin 2.7 g/dL (3.5-5.7); Albumin/Globulin Ratio 1.4 (1.1-2.2); Bilirubin,Total 0.3 mg/dL (0.3-1.0); Calcium 7.1 mg/dL (8.6-10.3); Magnesium 1.5 mg/dL (1.6-2.6); Potassium 4.4 mEq/L (3.5-5.1); Total Protein 4.7 g/dL (6.4-8.9)
[2020-07-30 15:55] LABS: Monocytes # 1.4 K/mcL (0.0-1.3); Neutrophils # 14.5 K/mcL (1.6-8.9); Platelet Estimate Slight Decrease (Normal); Toxic Vacuolation Present (Not Present)
[2020-07-30] MEDS: Pantoprazole 40 MG VIAL IVP SCH (18:00)
[2020-07-31 03:24] LABS: Albumin 2.4 g/dL (3.5-5.7); Albumin/Globulin Ratio 1.2 (1.1-2.2); Bilirubin,Total 0.3 mg/dL (0.3-1.0); Calcium 6.7 mg/dL (8.6-10.3); Magnesium 1.3 mg/dL (1.6-2.6); Potassium 3.8 mEq/L (3.5-5.1); Total Protein 4.4 g/dL (6.4-8.9)
[2020-07-31 04:47] LABS: Basophils % 0.1 %; Hematocrit 31.8 % (35.3-44.9); Hemoglobin 10.1 g/dL (11.5-15.4); Immature Granulocytes % 0.8 % (0-4); Lymphocytes # 0.6 K/mcL (0.6-4.6); Lymphocytes % 4.9 %; Mean Corpuscular HGB Conc 31.8 g/dL (31.6-35.5); Mean Corpuscular Hemoglobin 31.6 pg (28.0-33.3); Mean Corpuscular Volume 99.4 fL (83.0-100.0); Mean Platelet Volume 10.5 fL (9.4-12.4); Monocytes # 0.7 K/mcL (0.0-1.3); Monocytes % 5.8 %; Neutrophils # 10.8 K/mcL (1.6-8.9); Platelet Count 132 K/mcL (140-400); Red Cell Distribution Width 12.9 % (11.5-14.5); Segmented Neutrophils % 88.4 %; White Blood Count 12.2 K/mcL (4.3-11.1)
[2020-07-31] MEDS: Pantoprazole 40 MG VIAL IVP SCH ×2 (05:19→17:13)
[2020-07-31] MEDS: MetroNIDAZOLE 500 MG/100 ML 500 MG/100 ML BAG IVPB SCH ×3 (05:19→21:27)
[2020-07-31] MEDS: Insulin LISPRO 300 UNITS/3 ML VIAL SQ SCH ×3 (05:31→17:14)
[2020-07-31 06:41] LABS: Platelet Estimate Decreased (Normal); Reactive Lymphocytes Present (Not Present)
[2020-07-31] MEDS: Sodium Bicarbonate 150 MEQ in D5% in Water 1,000 ML IVC SCH ×3 (07:42→23:25)
[2020-07-31] MEDS: Vancomycin Oral Soln 125 MG/2.5 ML UDC PO SCH ×4 (07:44→21:27)
[2020-08-01] MEDS: Insulin LISPRO 300 UNITS/3 ML VIAL SQ SCH ×6 (00:02→23:58)
[2020-08-01 04:11] LABS: Basophils # 0.1 K/mcL (0.0-0.2); Basophils % 0.4 %; Eosinophils # 0.1 K/mcL (0.0-0.6); Eosinophils % 0.5 %; Hematocrit 28.4 % (35.3-44.9); Hemoglobin 9.2 g/dL (11.5-15.4); Immature Granulocytes % 0.6 % (0-4); Lymphocytes # 0.7 K/mcL (0.6-4.6); Mean Corpuscular HGB Conc 32.4 g/dL (31.6-35.5); Mean Corpuscular Hemoglobin 31.6 pg (28.0-33.3); Mean Corpuscular Volume 97.6 fL (83.0-100.0); Mean Platelet Volume 10.3 fL (9.4-12.4); Monocytes # 0.6 K/mcL (0.0-1.3); Monocytes % 5.1 %; Neutrophils # 10.4 K/mcL (1.6-8.9); Platelet Count 114 K/mcL (140-400); Red Blood Count 2.91 M/mcL (3.82-4.97); Red Cell Distribution Width 13.2 % (11.5-14.5); Segmented Neutrophils % 87.4 %; White Blood Count 11.9 K/mcL (4.3-11.1)
[2020-08-01 04:31] LABS: Calcium 6.1 mg/dL (8.6-10.3); Potassium 3.8 mEq/L (3.5-5.1)
[2020-08-01 04:49] LABS: Platelet Estimate Decreased (Normal); Reactive Lymphocytes Present (Not Present)
[2020-08-01] MEDS: Pantoprazole 40 MG VIAL IVP SCH ×2 (05:15→17:09)
[2020-08-01] MEDS: MetroNIDAZOLE 500 MG/100 ML 500 MG/100 ML BAG IVPB SCH ×3 (05:15→20:24)
[2020-08-01] MEDS: Vancomycin Oral Soln 125 MG/2.5 ML UDC PO SCH ×2 (08:02→13:10)
[2020-08-01] MEDS ORDERED: Isovue-370 500 ML BOTTLE PO ONE (09:31)
[2020-08-01] MEDS ORDERED: Heparin 1,000 UNITS/500 mL 500 ML ONE ×2 (10:17→11:30)
[2020-08-01] MEDS ORDERED: *HR* Heparin 5,000 UNIT/ML VIAL ONE (10:39)
[2020-08-01] MEDS ORDERED: *HR* FentaNYL (PF) 100 MCG/2 ML VIAL ONE ×2 (11:03→13:36)
[2020-08-01] MEDS ORDERED: *HR* Rocuronium Bromide 50 MG/5 ML VIAL ONE ×2 (11:03→13:14)
[2020-08-01] MEDS ORDERED: Lidocaine -MPF 2% 2 ML VIAL ONE (11:03)
[2020-08-01] MEDS ORDERED: *HR* Propofol 200 MG/20 ML VIAL IVP ONE (11:03)
[2020-08-01] MEDS ORDERED: Dexamethasone 4 MG/ML VIAL ONE (11:03)
[2020-08-01] MEDS ORDERED: *HR* Midazolam HCl 2 MG/2 ML VIAL ONE ×2 (11:03→14:15)
[2020-08-01] MEDS ORDERED: Ondansetron 4 MG/2 ML VIAL ONE (11:03)
[2020-08-01] MEDS: Calcium Gluconate 1gm/50mL 1 GM/50 ML BAG IVPB SCH ×3 (11:17→16:06)
[2020-08-01] MEDS ORDERED: EPHEDrine 50 MG/ML VIAL ONE (11:34)
[2020-08-01] MEDS ORDERED: Lidocaine HCL 4 ML Topical Solution (Laryng-O-Jet Kit Sterile Pak) TP ONE (11:36)
[2020-08-01] MEDS ORDERED: *HR* HYDROMORPHONE 2 MG/ML VIAL ONE (12:09)
[2020-08-01] MEDS ORDERED: *HR* Phenylephrine 10 MG/ML VIAL ONE (13:01)
[2020-08-01] MEDS ORDERED: Albumin Human 5% 12.5 GM/250 ML IV.SOLN ONE ×2 (13:07→13:59)
[2020-08-01] MEDS: Sodium Bicarbonate 150 MEQ in D5% in Water 1,000 ML IVC SCH ×3 (13:11→15:51)
[2020-08-01] MEDS ORDERED: *HR* Vasopressin 20 UNIT/ML VIAL ONE (13:59)
[2020-08-01 14:16] LABS: ABG Base Excess 3 mEq/L (-2 to 3); ABG Chloride 98 mEq/L (98-107); ABG Glucose 123 mg/dL (60-95); ABG HCO3 26 mEq/L (21-27); ABG Ionized Calcium 0.69 mmol/L (1.15-1.35); ABG Oxygen Saturation 100 % (95-98); ABG PCO2 32 mmHg (35-45); ABG PH 7.51 pH Units (7.32-7.45); ABG PO2 237 mmHg (85-104); ABG TCO2 27 mEq/L (20-26)
[2020-08-01] MEDS ORDERED: D5% in Water 1,000 ML IVC PRN (14:41)
[2020-08-01] MEDS ORDERED: Prochlorperazine 10 MG/2 ML VIAL IVP PRN (14:41)
[2020-08-01] MEDS ORDERED: Vancomycin 1 EACH in 0.9 % Sodium Chloride 250 ML IVPB PRN (14:41)
[2020-08-01] MEDS ORDERED: Naloxone 0.4 MG/ML INJ IVP PRN (14:41)
[2020-08-01] MEDS ORDERED: Dextrose Gel 15 GM/37.5 ML TUBE PO PRN ×2 (14:41)
[2020-08-01] MEDS ORDERED: *HR* Dextrose 50 % in Water (Vial) 50 ML VIAL IVP PRN (14:41)
[2020-08-01] MEDS: Norepinephrine 4 MG/254 ML IV.SOLN IVC SCH (15:00)
[2020-08-01] MEDS ORDERED: Vancomycin 500 MG in 0.9 % Sodium Chloride Mini Bag 100 ML IVPB ONE (16:00)
[2020-08-01] MEDS: FentaNYL (PF) 1,000 MCG/100 ML IV.SOLN IVC SCH (16:04)
[2020-08-01] MEDS ORDERED: 0.9 % Sodium Chloride 250 ML IVC PRN (16:25)
[2020-08-01] MEDS ORDERED: 0.9 % Sodium Chloride 1,000 ML PRIME SCH (16:30)
[2020-08-01] MEDS ORDERED: Vancomycin Oral Soln 125 MG/2.5 ML UDC PO SCH (17:00)
[2020-08-01] MEDS ORDERED: Water for inj. (sterile) 20 ML IV ONE (17:19)
[2020-08-01] MEDS: Micafungin 100 MG in 0.9 % Sodium Chloride Mini Bag 100 ML IVPB SCH (17:21)
[2020-08-01 17:40] LABS: ABG Base Excess 3 mEq/L (-2 to 3); ABG HCO3 28 mEq/L (21-27); ABG Oxygen Saturation 97 % (95-98); ABG PCO2 45 mmHg (35-45); ABG PO2 90 mmHg (85-104); ABG TCO2 29 mEq/L (20-26); Blood Gas Modality ASSIST CONTROL; Blood Gas VT 350 cc
[2020-08-01 18:39] LABS: Basophils % 0.4 %; Hematocrit 24.1 % (35.3-44.9); Immature Granulocytes % 0.7 % (0-4); Lymphocytes # 0.3 K/mcL (0.6-4.6); Lymphocytes % 2.8 %; Mean Corpuscular HGB Conc 33.2 g/dL (31.6-35.5); Mean Corpuscular Hemoglobin 32.3 pg (28.0-33.3); Mean Corpuscular Volume 97.2 fL (83.0-100.0); Mean Platelet Volume 10.9 fL (9.4-12.4); Monocytes # 0.5 K/mcL (0.0-1.3); Neutrophils # 10.5 K/mcL (1.6-8.9); Platelet Count 110 K/mcL (140-400); Red Blood Count 2.48 M/mcL (3.82-4.97); Red Cell Distribution Width 13.2 % (11.5-14.5); Segmented Neutrophils % 92.1 %; White Blood Count 11.4 K/mcL (4.3-11.1)
[2020-08-01 18:40] LABS: INR 1.2; Prothrombin Time 13.8 Seconds (9.4-12.1)
[2020-08-01 18:46] LABS: Basophils # 0.1 K/mcL (0.0-0.2)
[2020-08-01 18:49] LABS: ABG Ionized Calcium 0.74 mmol/L (1.15-1.35)
[2020-08-01 18:55] LABS: Albumin 2.2 g/dL (3.5-5.7); Albumin/Globulin Ratio 1.2 (1.1-2.2); Bilirubin,Total 0.5 mg/dL (0.3-1.0); Globulin 1.8 g/dL (2.4-3.5); Magnesium 1.3 mg/dL (1.6-2.6); Phosphorous 5.3 mg/dL (2.7-4.5); Potassium 3.6 mEq/L (3.5-5.1)
[2020-08-01 19:19] LABS: Platelet Estimate Slight Decrease (Normal)
[2020-08-01] MEDS: Calcium Gluconate 1gm/50mL 1 GM/50 ML BAG IVPB PRN (20:25)
[2020-08-02] MEDS ORDERED: *HR* Heparin 10,000 UNIT/10 ML VIAL IV PRN (00:01)
[2020-08-02 04:11] LABS: ABG Base Excess 5 mEq/L (-2 to 3); ABG HCO3 29 mEq/L (21-27); ABG Oxygen Saturation 98 % (95-98); ABG PCO2 42 mmHg (35-45); ABG PH 7.45 pH Units (7.32-7.45); ABG PO2 95 mmHg (85-104); ABG TCO2 31 mEq/L (20-26); Blood Gas Modality ASSIST CONTROL; Blood Gas VT 350 cc
[2020-08-02 04:16] LABS: Hematocrit 26.4 % (35.3-44.9); Hemoglobin 8.5 g/dL (11.5-15.4); Mean Corpuscular HGB Conc 32.2 g/dL (31.6-35.5); Mean Corpuscular Hemoglobin 31.4 pg (28.0-33.3); Mean Corpuscular Volume 97.4 fL (83.0-100.0); Mean Platelet Volume 10.9 fL (9.4-12.4); Nucleated Red Blood Cells 0.1 /100 WBC (0); Platelet Count 152 K/mcL (140-400); Red Blood Count 2.71 M/mcL (3.82-4.97); Red Cell Distribution Width 13.2 % (11.5-14.5)
[2020-08-02 04:34] LABS: Magnesium 1.9 mg/dL (1.6-2.6); Phosphorous 5.8 mg/dL (2.7-4.5)
[2020-08-02 04:36] LABS: Calcium 6.3 mg/dL (8.6-10.3); Potassium 3.5 mEq/L (3.5-5.1)
[2020-08-02 04:46] LABS: ABG Ionized Calcium 0.71 mmol/L (1.15-1.35)
[2020-08-02 04:55] LABS: Lymphocytes # 0.7 K/mcL (0.6-4.6); Neutrophils # 15.3 K/mcL (1.6-8.9)
[2020-08-02 04:56] LABS: Platelet Estimate Normal (Normal)
[2020-08-02] MEDS ORDERED: Water for inj. (sterile) 20 ML IV ONE (05:31)
[2020-08-02] MEDS: Insulin LISPRO 300 UNITS/3 ML VIAL SQ SCH ×4 (05:46→23:33)
[2020-08-02] MEDS: Pantoprazole 40 MG VIAL IVP SCH ×2 (05:46→17:17)
[2020-08-02] MEDS: MetroNIDAZOLE 500 MG/100 ML 500 MG/100 ML BAG IVPB SCH ×3 (05:47→19:57)
[2020-08-02] MEDS: Norepinephrine 4 MG/254 ML IV.SOLN IVC SCH (06:16)
[2020-08-02] MEDS: Calcium Gluconate 1gm/50mL 1 GM/50 ML BAG IVPB PRN (06:27)
[2020-08-02] MEDS: Pantoprazole 40 MG in 0.9 % Sodium Chloride Mini Bag 100 ML IVC SCH (07:36)
[2020-08-02 09:15] LABS: Hepatitis B Surface Antibody < 3.10 mIU/mL
[2020-08-02 09:26] LABS: Hepatitis B Surface Antigen Nonreactive (Nonreactive)
[2020-08-02] MEDS ORDERED: Calcium Chloride 2,000 MG in 0.9 % Sodium Chloride 100 ML IVPB ONE (12:30)
[2020-08-02] MEDS: FentaNYL (PF) 1,000 MCG/100 ML IV.SOLN IVC SCH (15:53)
[2020-08-02 16:28] LABS: ABG Ionized Calcium 1.03 mmol/L (1.15-1.35)
[2020-08-02 16:41] LABS: Calcium 7.9 mg/dL (8.6-10.3); Magnesium 2.1 mg/dL (1.6-2.6); Phosphorous 4.9 mg/dL (2.7-4.5)
[2020-08-02] MEDS: Micafungin 100 MG in 0.9 % Sodium Chloride Mini Bag 100 ML IVPB SCH (17:11)
[2020-08-02] MEDS: Cefepime HCl 1,000 MG in Water for inj. (sterile) 10 ML IVP SCH (17:17)
[2020-08-03 03:47] LABS: VBG Ionized Calcium 0.96 mmol/L (1.15-1.35)
[2020-08-03 03:55] LABS: Basophils % 0.1 %; Hemoglobin 7.7 g/dL (11.5-15.4); Immature Granulocytes % 1.6 % (0-4); Lymphocytes # 0.7 K/mcL (0.6-4.6); Lymphocytes % 5.1 %; Mean Corpuscular HGB Conc 30.8 g/dL (31.6-35.5); Mean Corpuscular Volume 100.8 fL (83.0-100.0); Mean Platelet Volume 10.4 fL (9.4-12.4); Monocytes # 2.1 K/mcL (0.0-1.3); Monocytes % 14.3 %; Neutrophils # 11.3 K/mcL (1.6-8.9); Platelet Count 116 K/mcL (140-400); Red Blood Count 2.48 M/mcL (3.82-4.97); Red Cell Distribution Width 13.2 % (11.5-14.5); Segmented Neutrophils % 78.9 %; White Blood Count 14.4 K/mcL (4.3-11.1)
[2020-08-03 04:04] LABS: Calcium 7.3 mg/dL (8.6-10.3); Potassium 4.2 mEq/L (3.5-5.1)
[2020-08-03 04:05] LABS: Magnesium 2.1 mg/dL (1.6-2.6)
[2020-08-03] MEDS ORDERED: Water for inj. (sterile) 20 ML IV ONE (04:28)
[2020-08-03] MEDS: Pantoprazole 40 MG VIAL IVP SCH ×2 (04:33→16:08)
[2020-08-03] MEDS: MetroNIDAZOLE 500 MG/100 ML 500 MG/100 ML BAG IVPB SCH ×3 (04:33→19:54)
[2020-08-03] MEDS: Calcium Gluconate 1gm/50mL 1 GM/50 ML BAG IVPB PRN ×3 (04:33→17:45)
[2020-08-03] MEDS: Norepinephrine 4 MG/254 ML IV.SOLN IVC SCH (05:23)
[2020-08-03] MEDS: Insulin LISPRO 300 UNITS/3 ML VIAL SQ SCH ×4 (05:30→23:38)
[2020-08-03] MEDS ORDERED: 0.9 % Sodium Chloride 250 ML IVC PRN (07:08)
[2020-08-03] MEDS ORDERED: *HR* Heparin 10,000 UNIT/10 ML VIAL IV PRN (08:27)
[2020-08-03 09:05] LABS: Hematocrit 22.7 % (35.3-44.9); Hemoglobin 6.8 g/dL (11.5-15.4)
[2020-08-03 10:41] LABS: VBG Ionized Calcium 0.54 mmol/L (1.15-1.35)
[2020-08-03] MEDS: FentaNYL (PF) 1,000 MCG/100 ML IV.SOLN IVC SCH (12:03)
[2020-08-03] MEDS: Cefepime HCl 1,000 MG in Water for inj. (sterile) 10 ML IVP SCH (16:07)
[2020-08-03] MEDS: Micafungin 100 MG in 0.9 % Sodium Chloride Mini Bag 100 ML IVPB SCH (16:07)
[2020-08-03 17:03] LABS: Hematocrit 25.4 % (35.3-44.9); Hemoglobin 7.7 g/dL (11.5-15.4)
[2020-08-03 17:12] LABS: VBG Ionized Calcium 0.67 mmol/L (1.15-1.35)
[2020-08-04 04:06] LABS: Basophils % 0.3 %; Eosinophils % 0.3 %; Hematocrit 31.1 % (35.3-44.9); Immature Granulocytes % 2.9 % (0-4); Lymphocytes # 1.2 K/mcL (0.6-4.6); Lymphocytes % 10.2 %; Mean Corpuscular HGB Conc 31.2 g/dL (31.6-35.5); Mean Corpuscular Hemoglobin 29.9 pg (28.0-33.3); Mean Platelet Volume 10.4 fL (9.4-12.4); Monocytes % 16.5 %; Neutrophils # 8.2 K/mcL (1.6-8.9); Platelet Count 107 K/mcL (140-400); Red Blood Count 3.24 M/mcL (3.82-4.97); Segmented Neutrophils % 69.8 %; White Blood Count 11.8 K/mcL (4.3-11.1)
[2020-08-04 04:09] LABS: Prothrombin Time 11.8 Seconds (9.4-12.1)
[2020-08-04 04:16] LABS: Hemoglobin 9.7 g/dL (11.5-15.4)
[2020-08-04 04:24] LABS: Calcium 7.4 mg/dL (8.6-10.3); Potassium 4.1 mEq/L (3.5-5.1)
[2020-08-04] MEDS: Calcium Gluconate 1gm/50mL 1 GM/50 ML BAG IVPB PRN ×2 (05:07→18:16)
[2020-08-04] MEDS: MetroNIDAZOLE 500 MG/100 ML 500 MG/100 ML BAG IVPB SCH ×3 (05:07→20:37)
[2020-08-04] MEDS: Pantoprazole 40 MG VIAL IVP SCH ×2 (05:07→18:17)
[2020-08-04] MEDS: Insulin LISPRO 300 UNITS/3 ML VIAL SQ SCH ×4 (05:14→23:02)
[2020-08-04 05:38] LABS: Platelet Estimate Slight Decrease (Normal)
[2020-08-04 09:39] LABS: ABG Base Excess -1 mEq/L (-2 to 3); ABG HCO3 24 mEq/L (21-27); ABG Oxygen Saturation 96 % (95-98); ABG PCO2 38 mmHg (35-45); ABG PH 7.41 pH Units (7.32-7.45); ABG PO2 83 mmHg (85-104); ABG TCO2 25 mEq/L (20-26)
[2020-08-04] MEDS: *HR* Metoprolol 5 MG/5 ML VIAL IVP SCH ×3 (11:51→23:02)
[2020-08-04] MEDS ORDERED: *HR* FentaNYL (PF) 100 MCG/2 ML VIAL ONE (12:45)
[2020-08-04] MEDS ORDERED: Dexamethasone 4 MG/ML VIAL ONE (12:45)
[2020-08-04] MEDS ORDERED: *HR* Succinylcholine 200 MG/10 ML VIAL IVP ONE ×2 (12:45)
[2020-08-04] MEDS ORDERED: Ondansetron 4 MG/2 ML VIAL ONE (12:45)
[2020-08-04] MEDS ORDERED: *HR* Propofol 200 MG/20 ML VIAL IVP ONE (12:45)
[2020-08-04 16:47] LABS: Appearance of Body Fluid Hazy (Clear); Volume of Body Fluid 22 mL
[2020-08-04] MEDS: Micafungin 100 MG in 0.9 % Sodium Chloride Mini Bag 100 ML IVPB SCH (18:15)
[2020-08-04] MEDS: Cefepime HCl 1,000 MG in Water for inj. (sterile) 10 ML IVP SCH (18:17)
[2020-08-04] MEDS: FentaNYL (PF) 1,000 MCG/100 ML IV.SOLN IVC SCH (20:34)
[2020-08-04] MEDS: Norepinephrine 4 MG/254 ML IV.SOLN IVC SCH (20:34)
[2020-08-05 03:52] LABS: Basophils # 0.1 K/mcL (0.0-0.2); Basophils % 0.4 %; Eosinophils # 0.1 K/mcL (0.0-0.6); Eosinophils % 0.8 %; Hematocrit 31.2 % (35.3-44.9); Hemoglobin 9.7 g/dL (11.5-15.4); Lymphocytes # 1.2 K/mcL (0.6-4.6); Lymphocytes % 8.8 %; Mean Corpuscular HGB Conc 31.1 g/dL (31.6-35.5); Mean Corpuscular Hemoglobin 30.8 pg (28.0-33.3); Mean Platelet Volume 10.8 fL (9.4-12.4); Monocytes # 1.4 K/mcL (0.0-1.3); Monocytes % 10.6 %; Neutrophils # 10.1 K/mcL (1.6-8.9); Platelet Count 117 K/mcL (140-400); Red Blood Count 3.15 M/mcL (3.82-4.97); Red Cell Distribution Width 17.1 % (11.5-14.5); Segmented Neutrophils % 76.4 %; White Blood Count 13.2 K/mcL (4.3-11.1)
[2020-08-05 04:05] LABS: Calcium 7.6 mg/dL (8.6-10.3); Potassium 4.4 mEq/L (3.5-5.1)
[2020-08-05 04:05] LABS: Magnesium 2.1 mg/dL (1.6-2.6); Phosphorous 5.9 mg/dL (2.7-4.5)
[2020-08-05 04:49] LABS: Platelet Estimate Slight Decrease (Normal)
[2020-08-05] MEDS ORDERED: Water for inj. (sterile) 20 ML IV ONE ×2 (05:14→17:20)
[2020-08-05] MEDS: MetroNIDAZOLE 500 MG/100 ML 500 MG/100 ML BAG IVPB SCH ×3 (05:18→20:31)
[2020-08-05] MEDS: *HR* Metoprolol 5 MG/5 ML VIAL IVP SCH ×5 (05:18→17:22)
[2020-08-05] MEDS: Pantoprazole 40 MG VIAL IVP SCH ×2 (05:19→17:23)
[2020-08-05] MEDS: Calcium Gluconate 1gm/50mL 1 GM/50 ML BAG IVPB PRN (05:20)
[2020-08-05] MEDS: Insulin LISPRO 300 UNITS/3 ML VIAL SQ SCH ×3 (05:20→17:18)
[2020-08-05] MEDS ORDERED: 0.9 % Sodium Chloride 250 ML IVC PRN ×2 (07:28→11:28)
[2020-08-05] MEDS ORDERED: 0.9 % Sodium Chloride 1,000 ML PRIME SCH ×2 (07:30→11:28)
[2020-08-05] MEDS: Norepinephrine 4 MG/254 ML IV.SOLN IVC SCH (10:18)
[2020-08-05] MEDS: FentaNYL (PF) 1,000 MCG/100 ML IV.SOLN IVC SCH (10:18)
[2020-08-05] MEDS ORDERED: *HR* Heparin 5,000 UNIT/ML VIAL SQ SCH (10:45)
[2020-08-05] MEDS ORDERED: Dextrose Gel 15 GM/37.5 ML TUBE PO PRN ×2 (11:28)
[2020-08-05] MEDS ORDERED: D5% in Water 1,000 ML IVC PRN (11:28)
[2020-08-05] MEDS ORDERED: *HR* Dextrose 50 % in Water (Vial) 50 ML VIAL IVP PRN (11:28)
[2020-08-05] MEDS ORDERED: Prochlorperazine 10 MG/2 ML VIAL IVP PRN (11:28)
[2020-08-05] MEDS ORDERED: Naloxone 0.4 MG/ML INJ IVP PRN (11:28)
[2020-08-05] MEDS ORDERED: Vancomycin 1 EACH in 0.9 % Sodium Chloride 250 ML IVPB PRN (11:28)
[2020-08-05] MEDS ORDERED: *HR* Metoprolol 5 MG/5 ML VIAL IVP ONE (12:29)
[2020-08-05] MEDS ORDERED: Cefepime HCl 1,000 MG in Water for inj. (sterile) 10 ML IVP SCH (17:00)
[2020-08-05] MEDS: *HR* Heparin 5,000 UNIT/ML VIAL SQ SCH (17:22)
[2020-08-05] MEDS: Cefepime HCl 2,000 MG in Water for inj. (sterile) 20 ML IVP SCH (17:23)
[2020-08-06] MEDS: *HR* Metoprolol 5 MG/5 ML VIAL IVP SCH ×4 (00:16→17:28)
[2020-08-06] MEDS: Insulin LISPRO 300 UNITS/3 ML VIAL SQ SCH ×4 (00:17→17:28)
[2020-08-06 04:44] LABS: Hematocrit 30.2 % (35.3-44.9); Hemoglobin 9.5 g/dL (11.5-15.4); Mean Corpuscular HGB Conc 31.5 g/dL (31.6-35.5); Mean Corpuscular Hemoglobin 30.4 pg (28.0-33.3); Mean Corpuscular Volume 96.8 fL (83.0-100.0); Mean Platelet Volume 11.2 fL (9.4-12.4); Platelet Count 132 K/mcL (140-400); Red Blood Count 3.12 M/mcL (3.82-4.97); Red Cell Distribution Width 15.8 % (11.5-14.5)
[2020-08-06 05:00] LABS: Calcium 7.4 mg/dL (8.6-10.3); Potassium 4.2 mEq/L (3.5-5.1)
[2020-08-06 05:37] LABS: Eosinophils # 0.3 K/mcL (0.0-0.6); Lymphocytes # 0.6 K/mcL (0.6-4.6); Monocytes # 0.3 K/mcL (0.0-1.3); Neutrophils # 14.4 K/mcL (1.6-8.9); Platelet Estimate Normal (Normal)
[2020-08-06] MEDS ORDERED: Water for inj. (sterile) 20 ML IV ONE ×2 (05:45→17:22)
[2020-08-06] MEDS: Pantoprazole 40 MG VIAL IVP SCH ×2 (05:49→17:28)
[2020-08-06] MEDS: *HR* Heparin 5,000 UNIT/ML VIAL SQ SCH ×3 (05:49→17:37)
[2020-08-06] MEDS: MetroNIDAZOLE 500 MG/100 ML 500 MG/100 ML BAG IVPB SCH ×3 (05:50→21:22)
[2020-08-06 09:50] LABS: ABG Base Excess -3 mEq/L (-2 to 3); ABG HCO3 21 mEq/L (21-27); ABG Oxygen Saturation 95 % (95-98); ABG PCO2 30 mmHg (35-45); ABG PH 7.44 pH Units (7.32-7.45); ABG PO2 72 mmHg (85-104); ABG TCO2 22 mEq/L (20-26)
[2020-08-07] MEDS: Insulin LISPRO 300 UNITS/3 ML VIAL SQ SCH ×5 (00:47→23:53)
[2020-08-07] MEDS: *HR* Metoprolol 5 MG/5 ML VIAL IVP SCH ×5 (00:47→23:50)
[2020-08-07] MEDS ORDERED: Water for inj. (sterile) 20 ML IV ONE (05:38)
[2020-08-07] MEDS: Pantoprazole 40 MG VIAL IVP SCH ×2 (05:49→17:41)
[2020-08-07] MEDS: MetroNIDAZOLE 500 MG/100 ML 500 MG/100 ML BAG IVPB SCH ×3 (05:49→20:32)
[2020-08-07 07:01] LABS: Basophils % 0.2 %; Eosinophils # 0.2 K/mcL (0.0-0.6); Eosinophils % 1.2 %; Hematocrit 29.4 % (35.3-44.9); Immature Granulocytes % 8.7 % (0-4); Lymphocytes # 1.2 K/mcL (0.6-4.6); Lymphocytes % 9.4 %; Mean Corpuscular HGB Conc 30.6 g/dL (31.6-35.5); Mean Corpuscular Hemoglobin 29.5 pg (28.0-33.3); Mean Corpuscular Volume 96.4 fL (83.0-100.0); Mean Platelet Volume 11.4 fL (9.4-12.4); Monocytes # 1.1 K/mcL (0.0-1.3); Monocytes % 8.2 %; Neutrophils # 9.3 K/mcL (1.6-8.9); Platelet Count 167 K/mcL (140-400); Red Blood Count 3.05 M/mcL (3.82-4.97); Red Cell Distribution Width 15.5 % (11.5-14.5); Segmented Neutrophils % 72.3 %; White Blood Count 12.9 K/mcL (4.3-11.1)
[2020-08-07] MEDS ORDERED: 0.9 % Sodium Chloride 250 ML IVC PRN (07:18)
[2020-08-07] MEDS ORDERED: 0.9 % Sodium Chloride 1,000 ML PRIME SCH (07:30)
[2020-08-07 08:00] LABS: Anisocytosis 1+ (Not Present); Macrocytosis Present (Not Present); Platelet Estimate Slight Decrease (Normal); Toxic Granulation Present (Not Present)
[2020-08-07] MEDS ORDERED: *HR* Heparin 10,000 UNIT/10 ML VIAL ONE (10:08)
[2020-08-07] MEDS ORDERED: *HR* Metoprolol 5 MG/5 ML VIAL IVP ONE (10:21)
[2020-08-07 10:27] LABS: ABG Base Excess 1 mEq/L (-2 to 3); ABG HCO3 23 mEq/L (21-27); ABG Oxygen Saturation 92 % (95-98); ABG PCO2 27 mmHg (35-45); ABG PH 7.54 pH Units (7.32-7.45); ABG PO2 55 mmHg (85-104); ABG TCO2 23 mEq/L (20-26); Blood Gas Modality Avaps; Blood Gas VT 500 cc
[2020-08-07 10:54] LABS: Basophils # 0.2 K/mcL (0.0-0.2); Eosinophils # 0.2 K/mcL (0.0-0.6); Eosinophils % 0.9 %; Hematocrit 33.6 % (35.3-44.9); Hemoglobin 10.5 g/dL (11.5-15.4); Immature Granulocytes % 9.1 % (0-4); Lymphocytes # 2.3 K/mcL (0.6-4.6); Lymphocytes % 11.5 %; Mean Corpuscular HGB Conc 31.3 g/dL (31.6-35.5); Mean Corpuscular Hemoglobin 29.7 pg (28.0-33.3); Mean Corpuscular Volume 94.9 fL (83.0-100.0); Mean Platelet Volume 11.3 fL (9.4-12.4); Monocytes # 1.9 K/mcL (0.0-1.3); Monocytes % 9.3 %; Neutrophils # 13.6 K/mcL (1.6-8.9); Nucleated Red Blood Cells 0.2 /100 WBC (0); Platelet Count 183 K/mcL (140-400); Red Blood Count 3.54 M/mcL (3.82-4.97); Red Cell Distribution Width 15.5 % (11.5-14.5); Segmented Neutrophils % 68.2 %
[2020-08-07 11:02] LABS: Folate 8.2 ng/mL (3.0-16.0)
[2020-08-07 11:27] LABS: Platelet Estimate Slight Decrease (Normal); Poikilocytosis 1+ (Not Present); Toxic Granulation Present (Not Present)
[2020-08-07 11:29] LABS: Burr Cells 2+ (Not Present)
[2020-08-07 11:31] LABS: Albumin 2.6 g/dL (3.5-5.7); Albumin/Globulin Ratio 0.9 (1.1-2.2); Bilirubin,Total 0.5 mg/dL (0.3-1.0); Calcium 7.6 mg/dL (8.6-10.3); Phosphorous 3.6 mg/dL (2.7-4.5); Potassium 3.7 mEq/L (3.5-5.1); Total Protein 5.6 g/dL (6.4-8.9); Troponin I 0.05 ng/mL (< 0.04)
[2020-08-07 12:23] LABS: Adenovirus Not Detected (Not Detect); Bordetella Pertussis Not Detected (Not Detect); Chlamydophila pneumoniae Not Detected (Not Detect); Coronavirus 229E Not Detected (Not Detect); Coronavirus HKU1 Not Detected (Not Detect); Coronavirus NL63 Not Detected (Not Detect); Coronavirus OC43 Not Detected (Not Detect); Human Metapneumovirus Not Detected (Not Detect); Human Rhinovirus/Enterovirus Not Detected (Not Detect); Influenza A Subtype 2009 H1 Not Detected (Not Detect); Influenza B Not Detected (Not Detect); Mycoplasma pneumoniae Not Detected (Not Detect); Parainfluenza Virus 1 Not Detected (Not Detect); Parainfluenza Virus 2 Not Detected (Not Detect); Parainfluenza Virus 3 Not Detected (Not Detect); Parainfluenza Virus 4 Not Detected (Not Detect); Respiratory Syncytial Virus Not Detected (Not Detect); SARS-CoV-2 Not Detected (Not Detect)
[2020-08-07] MEDS ORDERED: *HR* HYDROmorphone (PF) 1 MG/ML SYRINGE IVP PRN (13:23)
[2020-08-07] MEDS ORDERED: Ondansetron 4 MG/2 ML VIAL IVP PRN (13:23)
[2020-08-07] MEDS ORDERED: *HR* Labetalol 20 MG/4 ML SYRINGE IVP PRN (13:23)
[2020-08-07] MEDS ORDERED: *HR* Propofol 200 MG/20 ML VIAL IVP ONE (13:26)
[2020-08-07] MEDS ORDERED: Lidocaine -MPF 2% 2 ML VIAL ONE (13:26)
[2020-08-07] MEDS ORDERED: *HR* PHENYLEPHRINE 1,000 MCG/10 ML SYRINGE IVP ONE (14:05)
[2020-08-07] MEDS: Cefepime HCl 2,000 MG in Water for inj. (sterile) 20 ML IVP SCH (17:54)
[2020-08-08] MEDS ORDERED: Water for inj. (sterile) 20 ML IV ONE ×2 (05:25→18:28)
[2020-08-08] MEDS: MetroNIDAZOLE 500 MG/100 ML 500 MG/100 ML BAG IVPB SCH ×3 (05:43→23:06)
[2020-08-08] MEDS: Pantoprazole 40 MG VIAL IVP SCH ×2 (05:43→18:38)
[2020-08-08] MEDS: *HR* Metoprolol 5 MG/5 ML VIAL IVP SCH ×3 (05:49→18:38)
[2020-08-08] MEDS: Insulin LISPRO 300 UNITS/3 ML VIAL SQ SCH ×3 (06:17→18:55)
[2020-08-08 06:18] LABS: Basophils # 0.1 K/mcL (0.0-0.2); Basophils % 0.8 %; Eosinophils # 0.1 K/mcL (0.0-0.6); Eosinophils % 1.1 %; Hematocrit 29.1 % (35.3-44.9); Immature Granulocytes % 6.2 % (0-4); Lymphocytes # 1.3 K/mcL (0.6-4.6); Lymphocytes % 11.3 %; Mean Corpuscular HGB Conc 29.6 g/dL (31.6-35.5); Mean Corpuscular Hemoglobin 29.2 pg (28.0-33.3); Mean Corpuscular Volume 98.6 fL (83.0-100.0); Monocytes # 1.1 K/mcL (0.0-1.3); Monocytes % 9.5 %; Neutrophils # 8.4 K/mcL (1.6-8.9); Nucleated Red Blood Cells 0.2 /100 WBC (0); Platelet Count 157 K/mcL (140-400); Red Blood Count 2.95 M/mcL (3.82-4.97); Red Cell Distribution Width 15.4 % (11.5-14.5); Segmented Neutrophils % 71.1 %; White Blood Count 11.8 K/mcL (4.3-11.1)
[2020-08-08 06:24] LABS: Hemoglobin 8.6 g/dL (11.5-15.4)
[2020-08-08 06:53] LABS: Platelet Estimate Slight Decrease (Normal)
[2020-08-08 06:54] LABS: Toxic Granulation Present (Not Present)
[2020-08-08 08:42] LABS: Calcium 7.2 mg/dL (8.6-10.3)
[2020-08-08] MEDS ORDERED: D10% in Water 500 ML IVC PRN (12:47)
[2020-08-08 14:53] LABS: Magnesium 1.9 mg/dL (1.6-2.6); Phosphorous 5.4 mg/dL (2.7-4.5)
[2020-08-08] MEDS ORDERED: Clinimix E 5%-15% SOLUTION 2,000 ML with MVI, adult with vitamin K 10 ML, Trace Eleme... IVC SCH (17:00)
[2020-08-08 21:20] LABS: ABG Base Excess -2 mEq/L (-2 to 3); ABG HCO3 22 mEq/L (21-27); ABG Oxygen Saturation 98 % (95-98); ABG PCO2 35 mmHg (35-45); ABG PH 7.41 pH Units (7.32-7.45); ABG PO2 99 mmHg (85-104); ABG TCO2 23 mEq/L (20-26)
[2020-08-08 22:43] LABS: Basophils # 0.1 K/mcL (0.0-0.2); Basophils % 0.8 %; Eosinophils # 0.2 K/mcL (0.0-0.6); Eosinophils % 1.4 %; Hemoglobin 8.6 g/dL (11.5-15.4); Immature Granulocytes % 6.5 % (0-4); Lymphocytes # 1.1 K/mcL (0.6-4.6); Lymphocytes % 10.1 %; Mean Corpuscular HGB Conc 31.9 g/dL (31.6-35.5); Mean Corpuscular Hemoglobin 33.1 pg (28.0-33.3); Mean Corpuscular Volume 103.8 fL (83.0-100.0); Mean Platelet Volume 10.8 fL (9.4-12.4); Monocytes # 1.2 K/mcL (0.0-1.3); Neutrophils # 7.9 K/mcL (1.6-8.9); Nucleated Red Blood Cells 0.2 /100 WBC (0); Platelet Count 158 K/mcL (140-400); Red Cell Distribution Width 14.7 % (11.5-14.5); Segmented Neutrophils % 70.2 %; White Blood Count 11.3 K/mcL (4.3-11.1)
[2020-08-08 23:00] LABS: Albumin 2.2 g/dL (3.5-5.7); Albumin/Globulin Ratio 0.8 (1.1-2.2); Bilirubin,Total 0.4 mg/dL (0.3-1.0); Calcium 7.1 mg/dL (8.6-10.3); Globulin 2.6 g/dL (2.4-3.5); Potassium 3.9 mEq/L (3.5-5.1); Total Protein 4.8 g/dL (6.4-8.9)
[2020-08-08 23:04] LABS: Dohle Bodies Present (Not Present)
[2020-08-08] MEDS ORDERED: Ondansetron 4 MG/2 ML VIAL IVP PRN (23:17)
[2020-08-08] MEDS ORDERED: Morphine Sulfate 2 MG/ML SYRINGE IVP PRN (23:17)
[2020-08-08] MEDS ORDERED: *HR* LORazepam 2 MG/ML VIAL IVP PRN (23:17)
[2020-08-08] MEDS ORDERED: Scopolamine Patch 1.5 MG PATCH.TD72 TD SCH (23:30)
[2020-08-09] MEDS ORDERED: Water for inj. (sterile) 20 ML IV ONE (07:48)
[2020-08-09] MEDS: Cefepime HCl 2,000 MG in Water for inj. (sterile) 20 ML IVP SCH (09:10)
[2020-08-09 10:02] LABS: Basophils # 0.1 K/mcL (0.0-0.2); Basophils % 0.8 %; Eosinophils # 0.2 K/mcL (0.0-0.6); Eosinophils % 1.6 %; Hematocrit 29.6 % (35.3-44.9); Hemoglobin 8.9 g/dL (11.5-15.4); Immature Granulocytes % 5.3 % (0-4); Lymphocytes # 1.2 K/mcL (0.6-4.6); Lymphocytes % 10.4 %; Mean Corpuscular HGB Conc 30.1 g/dL (31.6-35.5); Mean Corpuscular Hemoglobin 30.4 pg (28.0-33.3); Mean Platelet Volume 11.1 fL (9.4-12.4); Monocytes # 1.2 K/mcL (0.0-1.3); Monocytes % 10.5 %; Neutrophils # 8.3 K/mcL (1.6-8.9); Platelet Count 164 K/mcL (140-400); Red Blood Count 2.93 M/mcL (3.82-4.97); Red Cell Distribution Width 15.1 % (11.5-14.5); Segmented Neutrophils % 71.4 %; White Blood Count 11.6 K/mcL (4.3-11.1)
[2020-08-09 10:20] LABS: Albumin 2.3 g/dL (3.5-5.7); Albumin/Globulin Ratio 0.9 (1.1-2.2); Bilirubin,Total 0.4 mg/dL (0.3-1.0); Calcium 7.4 mg/dL (8.6-10.3); Globulin 2.6 g/dL (2.4-3.5); Large Platelets Present (Not Present); Platelet Estimate Normal (Normal); Total Protein 4.9 g/dL (6.4-8.9); Toxic Granulation Present (Not Present)
[2020-08-09] MEDS ORDERED: Ondansetron 4 MG/2 ML VIAL IVP PRN (17:51)
[2020-08-09] MEDS ORDERED: Prochlorperazine 10 MG/2 ML VIAL IVP PRN (17:51)
[2020-08-11] MEDS ORDERED: Scopolamine Patch 1.5 MG PATCH.TD72 TD SCH (23:30)
[2020-08-12] MEDS: *HR* LORazepam 2 MG/ML VIAL IVP PRN ×2 (01:07→11:04)
[2020-08-12] MEDS: *HR* LORazepam Oral Conc 2 MG/ML SL PRN ×2 (15:19→20:23)
[2020-08-13] MEDS: *HR* LORazepam Oral Conc 2 MG/ML SL PRN ×2 (00:27→08:18)
[2020-08-13 07:16] VITALS: BP 134/69
[2020-08-13] MEDS ORDERED: Atropine Sulfate 1% 40 DROP/2 ML BOTTLE SL PRN (08:15)
== END 2020-08-13 16:27 | disposition expired | DRG 853 ==
LOC: ICNU 19:25 → EMEROOARM 19:25 → OBSVTOIN 22:47 → SUATTDRO 22:47 → ICNU 07-30 01:10 → 2ANU 08-05 19:21 → ICNU 08-08 22:21 → 2ANU 08-10 04:27
PROVIDERS: ADMIT Student in an Organized Health Care Education/Training Program; ATTEND Family Medicine
PROC: IRPERMA (2020-08-01 12:00)
PROC: ENDOBRF (2020-08-09 10:00)